=== PATIENT | male | born 1955 | race Hispanic/Latino ===

== ENCOUNTER 2017-04-18 12:59 | Emergency (ER) | payer BC ==
[2017-04-18 14:06] VITALS: BMI 28.7
[2017-04-18 15:01] LABS: URINE BILIRUBIN NEGATIVE (NEGATIVE); URINE BLOOD NEGATIVE (NEGATIVE); URINE GLUCOSE (UA) >=1000 mg/dL (NEGATIVE); URINE KETONE 15 mg/dL (NEGATIVE); URINE LEUKOCYTE ESTERASE NEGATIVE Leu/uL (NEGATIVE); URINE PROTEIN TRACE mg/dL (<30 mg/dL); URINE UROBILINOGEN 0.2 E.U./dL (<1 E.U./dL)
[2017-04-18 15:02] LABS: URINE APPEARANCE SL CLOUDY (CLEAR); URINE COLOR YELLOW (YELLOW)
[2017-04-18 15:07] LABS: URINE RBC NEGATIVE /hpf (0-2); URINE WBC NEGATIVE /hpf (0-6)
[2017-04-18] MEDS ORDERED: Insulin Reg-MEDIUM-Coverage SC STA (15:13)
[2017-04-18] MEDS ORDERED: Insulin Regular 1 UNITS/0.01 ML ML SC STA (15:15)
--- NOTE | 2017-04-18 16:00 | ED PDOC ---
Arrival/HPI - General Chief Complaint: Flu-like Symptoms Time Seen by Provider: 04/18/17 14:25 Historian: Patient - History of Present Illness Narrative History of Present Illness (Text): 04/18/17 15:48 61yo male with PMHx of Diabetes and neuropathy who present with complaint of lower back pain, left knee pain, generalized weakness for days. He states he stopped taking his oral hypoglycemics in September, because he couldn't tolerate the side effect. +increase thirst. Denies nausea, vomiting, abdominal pain, fever, dysuria, hematuria, chest pain, any other complaint. Past Medical History - Provider Review Nursing Documentation Reviewed: Yes - Infectious Disease Hx of Infectious Diseases: None - Cardiac Hx Cardiac Disorders: Yes - Pulmonary Hx Respiratory Disorders: No - Neurological Hx Neurological Disorder: No - HEENT Hx HEENT Disorder: No - Renal Hx Renal Disorder: No - Endocrine/Metabolic Hx Endocrine Disorders: Yes Hx Diabetes Mellitus Type 2: Yes - Hematological/Oncological Hx Blood Disorders: No - Integumentary Hx Dermatological Disorder: No - Musculoskeletal/Rheumatological Hx Musculoskeletal Disorders: No - Gastrointestinal Hx Gastrointestinal Disorders: No - Genitourinary/Gynecological Hx Genitourinary Disorders: No - Psychiatric Hx Psychophysiologic Disorder: No Hx Depression: No Hx Emotional Abuse: No Hx Physical Abuse: No Hx Substance Use: No - Past Surgical History Past Surgical History: No Previous - Surgical History Other/Comment: right knee - Anesthesia Hx Anesthesia: No Hx Anesthesia Reactions: No - Suicidal Assessment Feels Threatened In Home Enviroment: No Family/Social History - Physician Review Nursing Documentation Reviewed: Yes Family/Social History: Unknown Family HX Smoking Status: Never Smoked Hx Alcohol Use: No Hx Substance Use: No Allergies/Home Meds Allergies/Adverse Reactions: Allergies ramipril Allergy (Verified 04/18/17 14:13) RASH Review of Systems - Physician Review All systems were reviewed & negative as marked: Yes - Review of Systems Constitutional: Normal Eyes: Normal ENT: Normal Respiratory: Normal Cardiovascular: Normal Gastrointestinal: Normal Genitourinary Male: Normal Musculoskeletal: Arthralgias (Left knee), Back Pain Skin: Normal Neurological: Normal Endocrine: Normal Hemo/Lymphatic: Normal Psychiatric: Normal Physical Exam Vital Signs Reviewed: Yes Vital Signs Temp Pulse Resp BP Pulse Ox 04/18/17 16:13 98.7 F 98 H 18 110/65 99 04/18/17 14:06 99.8 F H 116 H 20 108/63 97 Temperature: Afebrile Blood Pressure: Normal Pulse: Tachycardic Respiratory Rate: Normal Appearance: Positive for: Well-Appearing, Non-Toxic, Comfortable Pain Distress: None Mental Status: Positive for: Alert and Oriented X 3 Finger Stick Blood Glucose: 316 - Systems Exam Head: Present: Atraumatic, Normocephalic Pupils: Present: PERRL Extroacular Muscles: Present: EOMI Conjunctiva: Present: Normal Mouth: Present: Moist Mucous Membranes Neck: Present: Normal Range of Motion Respiratory/Chest: Present: Clear to Auscultation, Good Air Exchange. No: Respiratory Distress, Accessory Muscle Use Cardiovascular: Present: Regular Rate and Rhythm, Normal S1, S2. No: Murmurs Abdomen: Present: Normal Bowel Sounds. No: Tenderness, Distention, Peritoneal Signs Back: Present: Normal Inspection Upper Extremity: Present: Normal Inspection. No: Cyanosis, Edema Lower Extremity: Present: Normal Inspection. No: Edema Neurological: Present: GCS=15, CN II-XII Intact, Speech Normal Skin: Present: Warm, Dry, Normal Color. No: Rashes Psychiatric: Present: Alert, Oriented x 3, Normal Insight, Normal Concentration Medical Decision Making ED Course and Treatment: 04/18/17 17:22 PT was comfortable and hemodynamically stable in ED. Prelimary US report was negative for DVT b/l. per the tech. Pt's pain or weakness is likely secondary to neuropathy with history of uncontrolled DM. Result was DW the pt. He was DC home with Metformin 1000mg. Advised to f/u with his PMD for further treatment. Advised to return to ED for any new symptoms - Lab Interpretations Lab Results: Lab Results 04/18/17 14:50: Urine Color Yellow, Urine Appearance Sl cloudy, Urine pH 6.0, Ur Specific Altha 1.015, Urine Protein Trace H, Urine Glucose (UA) >=1000, Urine Ketones 15 H, Urine Blood Negative, Urine Nitrate Negative, Urine Bilirubin Negative, Urine Urobilinogen 0.2, Ur Leukocyte Esterase Negative, Urine RBC Negative, Urine WBC Negative - RAD Interpretation Radiology Orders: 04/18/17 14:26 KNEE WITH PATELLA LEFT 3 VIEW [RAD] Stat DUPLEX LOWER EXTRM VEIN BILAT [US] Stat - Medication Orders Current Medication Orders: Discontinued Medications Insulin Human Regular (Humulin R) 7 units SC ONCE STA PRN Reason: Protocol Stop: 04/18/17 15:16 Last Admin: 04/18/17 16:15 Dose: 7 units MAR Blood Glucose Document 04/18/17 16:15 EQ (Rec: 04/18/17 16:16 EQ [facility] [id number][place] Blood Glucose Finger Stick Blood Glucose (70-120) 327 Subcutaneous Administrations Document 04/18/17 16:15 EQ (Rec: 04/18/17 16:16 EQ [facility] [id number]) Injection Site MAR Injection Site Left Deltoid Charges for Administration # of Subcutaneous Administrations 1 Disposition/Present on Arrival - Present on Arrival Any Indicators Present on Arrival: No History of DVT/PE: No History of Uncontrolled Diabetes: No Urinary Catheter: No History of Decub. Ulcer: No History Surgical Site Infection Following: None - Disposition Have Diagnosis and Disposition been Completed?: Yes Diagnosis: Neuropathy, Leg pain, Hyperglycemia Disposition: HOME/ ROUTINE Disposition Time: 17:15 Patient Plan: Discharge Patient Problems: Current Active Problems Problem Status Onset Hyperglycemia Acute Leg pain Acute Neuropathy Acute Condition: STABLE Discharge Instructions (ExitCare): Peripheral Neuropathy (ED), Diabetic Hyperglycemia (ED) Additional Instructions: Follow up with your Doctor Return to ED for any new symptoms Prescriptions: MetFORMIN [glucoPHAGE] 1,000 mg PO BID #30 tab Referrals: Bret Doan [Primary Care Provider] - Follow up with primary Forms: [employer] ([place])
[2017-04-18 16:13] VITALS: RESP 18; TEMP 98.7; O2SAT 99
--- NOTE | 2017-04-18 16:18 | RAD ---
PROCEDURE: Left Knee Radiographs. HISTORY: Pain. COMPARISON: None. FINDINGS: BONES: Normal. No fracture. JOINTS: Normal. No osteoarthritis. JOINT EFFUSION: None. OTHER FINDINGS: None. IMPRESSION: Normal radiographs of the left knee.
[2017-04-18 17:44] VITALS: BP 112/69; PULSE 86
--- NOTE | 2017-04-20 14:05 | US ---
HISTORY: Leg pain and swelling. Evaluate for DVT PHYSICIAN(S): Raudel Perez MD. TECHNIQUE: Duplex sonography and color-flow Doppler with graded compression were used to evaluate the deep venous systems of both lower extremities. FINDINGS: The visualized deep venous systems of both lower extremities are sonographically normal and compressible. Normal wave forms and augmentation are seen. There is no sonographic evidence for deep venous thrombosis in the visualized segments of both lower extremities. IMPRESSION: No sonographic evidence for deep venous thrombosis in the visualized segments of both lower extremities.
== END 2017-04-18 17:43 | disposition home or self-care (01) ==
LOC: ED 12:59
DX: E11.65 Type 2 diabetes mellitus with hyperglycemia (principal); E11.40 Type 2 diabetes mellitus with diabetic neuropathy, unspecified; Z79.84 Long term (current) use of oral hypoglycemic drugs

== ENCOUNTER 2017-04-20 16:38 | Inpatient (IN) | payer BC ==
[2017-04-20] MEDS ORDERED: Vancomycin 1gm in NS 250ml 1 GM/250 ML BAG IVPB STA (17:08)
[2017-04-20] MEDS ORDERED: Piperacillin/Tazobact 3.375 gm 100 ML IVPB STA (17:08)
[2017-04-20] MEDS ORDERED: TDAP Vaccine 0.5 mL Syr IM ONE (17:08)
[2017-04-20] MEDS ORDERED: Morphine 4 mg/ml ISec IVP STA (17:08)
[2017-04-20] MEDS ORDERED: Sodium Chloride 0.9% 1,000 ML IV SCH (17:15)
--- NOTE | 2017-04-20 17:15 | ED PDOC ---
Arrival/HPI - General Chief Complaint: Lower Extremity Problem/Injury Time Seen by Provider: 04/20/17 16:52 Historian: Patient - History of Present Illness Narrative History of Present Illness (Text): 04/20/17 17:12 61 year old male, pmh including chronic uncontrolled diabetes due to the financial situation but currently on the metformin po medication only with last hgba1c 11 back in 08/2016, allergic to ramipril, last tetanus over 10 years ago , complaining of rt. lower extremity pain x 1 week. pt. stated that he was seen here about 2 days ago with negative RLE study for venuous doppler with no DVT from 2 days ago, still having and he is here for the second evaluation. Pt. has no nausea or vomiting, no chest pain or shortness of breath, no night sweat, no dizziness, no rash, no weight loss, stated that he walks alot, no other medical or psychological complaints. Past Medical History - Provider Review Nursing Documentation Reviewed: Yes - Infectious Disease Hx of Infectious Diseases: None - Cardiac Hx Cardiac Disorders: No - Pulmonary Hx Respiratory Disorders: No - Neurological Hx Neurological Disorder: No - HEENT Hx HEENT Disorder: No - Renal Hx Renal Disorder: No - Endocrine/Metabolic Hx Endocrine Disorders: Yes Hx Diabetes Mellitus Type 2: Yes - Hematological/Oncological Hx Blood Disorders: No - Integumentary Hx Dermatological Disorder: No - Musculoskeletal/Rheumatological Hx Musculoskeletal Disorders: No - Gastrointestinal Hx Gastrointestinal Disorders: No - Genitourinary/Gynecological Hx Genitourinary Disorders: No - Psychiatric Hx Psychophysiologic Disorder: No Hx Depression: No Hx Emotional Abuse: No Hx Physical Abuse: No Hx Substance Use: No - Past Surgical History Past Surgical History: No Previous - Surgical History Other/Comment: right knee - Anesthesia Hx Anesthesia: No Hx Anesthesia Reactions: No - Suicidal Assessment Feels Threatened In Home Enviroment: No Family/Social History - Physician Review Nursing Documentation Reviewed: Yes Family/Social History: Unknown Family HX Smoking Status: Never Smoked Hx Alcohol Use: No Hx Substance Use: No Allergies/Home Meds Allergies/Adverse Reactions: Allergies ramipril Allergy (Verified 04/20/17 16:51) RASH Review of Systems - Review of Systems Constitutional: absent: Fatigue, Fevers Eyes: absent: Vision Changes ENT: absent: Hearing Changes Respiratory: absent: SOB, Cough Cardiovascular: absent: Chest Pain Gastrointestinal: absent: Abdominal Pain, Nausea, Vomiting Skin: Cellulitis. absent: Rash, Pruritis, Skin Lesions, Laceration, Abscess, Ulcer Neurological: absent: Headache, Dizziness Physical Exam Vital Signs Reviewed: Yes Vital Signs Temp Pulse Resp BP Pulse Ox 04/20/17 19:13 90 16 137/78 96 04/20/17 18:29 82 18 139/80 98 04/20/17 16:47 98.3 F 105 H 18 121/70 96 Temperature: Afebrile Blood Pressure: Normal Pulse: Tachycardic Respiratory Rate: Normal Appearance: Positive for: Well-Appearing, Non-Toxic Pain Distress: Severe Mental Status: Positive for: Alert and Oriented X 3 - Systems Exam Head: Present: Atraumatic, Normocephalic Pupils: Present: PERRL Extroacular Muscles: Present: EOMI Conjunctiva: Present: Normal Mouth: Present: Moist Mucous Membranes Neck: Present: Normal Range of Motion Respiratory/Chest: Present: Clear to Auscultation, Good Air Exchange. No: Respiratory Distress, Accessory Muscle Use Cardiovascular: Present: Regular Rate and Rhythm, Normal S1, S2. No: Murmurs Abdomen: Present: Normal Bowel Sounds. No: Tenderness, Distention, Peritoneal Signs, Rebound, Guarding Back: Present: Normal Inspection Upper Extremity: Present: Normal Inspection. No: Cyanosis, Edema Lower Extremity: Present: Normal Inspection, Other (Rt. lower extremity: ventral visible approx. 2cm ruptured white pale blister skin with exposure of the underlying dermis layer of the skin on the 1st digit toe with cellulitis, cellulitis streaking dorsally to the anterior fabian proximal 1/3, +DPPT pulses, FROM without limitation, sensation intact, motor 5/5, +DPPT pulses capillary refill< 2 seconds, neurovascular intact. ). No: Edema Neurological: Present: GCS=15, Speech Normal, Motor Func Grossly Intact, Gait Normal, Memory Normal Skin: Present: Warm, Dry, Normal Color. No: Rashes Psychiatric: Present: Alert, Oriented x 3, Normal Insight, Normal Concentration Medical Decision Making ED Course and Treatment: 04/20/17 17:18 -labs/blood cultures/vbg -cxr and rt. foot xray -IV vancomyin and zosyn/morphine 4mg 04/20/17 17:34 -wound culture obtained and swab from the pouches of the rupture blister. Irrigated with saline, clean with betadine, xerofoam and gauze dressing. 04/20/17 18:08 -Pt. has wbc>12, tachycardic, +cellulitis, lactic acid>2. Code sepsis activated. IVF 30ml/kg (pt. stated that he has no cardiopulmonary disease) ordered with IV rocephin and zosyn. 04/20/17 18:09 -EKG: SR @ 100 BPM with PVC, no ST elevation or depression, no T wave inversion. -Chest xray wet read with no active disease -Rt. foot xray wet read with no visible fracture/dislocation/osteolytic lesion. -Labs are non-significant except wbc 12.1, glucose 386 (10 units insulin IV ordered), no signs or labs show indication of DKA -Lactic acid 2.1 -Pt. will need to be admitted. 04/20/17 18:24 -Pt. decline fluid bolus, hemodynamaically stable, will bolus 1000cc and maintainance at 200cc/hr due to the hyperglycemia condition with sepsis. -Discussed with Dr. Kee and he agreed not to bolus 3000cc/hr 04/20/17 18:55 -I discussed with DR. Kerr about the case/labs including code sepsis, request put in routine consult for Dr. Palma and Dr. Eubanks, request admit to her service. -Discussed with Dr. Kee and he will put in the admission order. - Lab Interpretations Microbiology Results: Microbiology Results 04/20/17 17:30 Drainage Gram Stain - Final Lab Results: 04/20/17 17:40 04/20/17 17:40 Lab Results 04/20/17 17:40: Sodium 132, Chloride 95 L, Potassium 4.1, Carbon Dioxide 25, Anion Gap 16, BUN 18, Creatinine 1.1, Est GFR ( Amer) > 60, Est GFR (Non- Af Amer) > 60, Random Glucose 386 H*, Calcium 9.8, Total Bilirubin 1.1, AST 16 L , ALT 29, Alkaline Phosphatase 104, Total Protein 7.9, Albumin 4.3, Globulin 3.6 , Albumin/Globulin Ratio 1.2 04/20/17 17:40: WBC 12.1 H, RBC 4.74, Hgb 14.8, Hct 42.8, MCV 90.3, MCH 31.2, MCHC 34.6, RDW 11.8, Plt Count 220, MPV 10.9, Gran % 82.7 H, Lymph % (Auto) 8.4 L, [place] % (Auto) 8.4 H, Eos % (Auto) 0.3 L, Baso % (Auto) 0.2, Gran # 10.00 H, Lymph # 1.0 L, [place] # 1.0 H, Eos # 0.0, Baso # 0.02 04/20/17 17:15: pO2 31, VBG pH 7.38, VBG pCO2 45.0, VBG HCO3 26.6, VBG Total CO2 28.0, VBG O2 Sat (Calc) 68.1 H, VBG Base Excess 1.0, VBG Potassium 4.1, Sodium 133.0, Chloride 95.0 L, Glucose 409 H*, Lactate 2.1, FiO2 21.0, Venous Blood Potassium 4.1 Interpretation: Abnormal lab values (Lactic acid 2.1, glucose 386, wbc 12.1) - RAD Interpretation Radiology Orders: 04/20/17 17:08 FOOT RIGHT 3 VIEWS ROUTINE [RAD] Stat 04/20/17 17:10 CHEST ONE VIEW [RAD] Stat Rt. foot: no acute findings Chest xray: no active disease Cold Press Loader: Radiologist - EKG Interpretation EKG Interpretation (Text): 04/20/17 17:23 -EKG: SR @ 100 BPM with PVC, no ST elevation or depression, no T wave inversion. Interpreted by ED Physician: Yes Type: 12 lead EKG - Medication Orders Current Medication Orders: Enoxaparin Sodium (Lovenox) 30 mg SC DAILY [facility] PRN Reason: Protocol Last Admin: 04/21/17 09:49 Dose: 30 mg Subcutaneous Administrations Document 04/21/17 09:49 DSZ (Rec: 04/21/17 09:50 DSZ [facility] [id number][place] Injection Site MAR Injection Site Right Abdomen Charges for Administration # of Subcutaneous Administrations 1 Famotidine (Pepcid) 40 mg PO HS [facility] Last Admin: 04/20/17 21:26 Dose: 40 mg Hydromorphone HCl (Dilaudid) 0.25 mg IVP Q6H PRN PRN Reason: Pain, Mild (1-3) Last Admin: 04/21/17 00:39 Dose: 0.25 mg MAR Pain Assessment Document 04/21/17 00:39 MJ (Rec: 04/21/17 00:40 MJ [facility] [id number][place] Pain Reassessment Is this a pain reassessment? No Sleep Is patient sleeping during reassessment? No Presence of Pain Presence of Pain Yes Pain Scale Used Pain Scale Used Numeric Location Left, Right or Bilateral Right Pain Location Body Site Foot Great Toe Description Description Constant Intensity of Pain at present 8 Pain Behavior Moaning Alleviating Factors/Management Medication Techniques Alleviating Factors Medication IVP Administration Document 04/21/17 00:39 MJ (Rec: 04/21/17 00:40 MJ [facility] [id number]) Charges for Administration # of IVP Administrations 1 Re-Assess: FATMATA Pain Assessment Document 04/21/17 01:39 MJ (Rec: 04/21/17 07:59 MJ [id number]) Pain Reassessment Is this a pain reassessment? Yes Sleep Is patient sleeping during reassessment? Yes Vancomycin HCl (Vancomycin 1gm) 1 gm in 250 mls @ 167 mls/hr IVPB DAILY [facility] PRN Reason: Protocol Last Admin: 04/21/17 10:08 Dose: 167 mls/hr eMAR Start Stop Document 04/21/17 10:08 DSZ (Rec: 04/21/17 10:08 DSZ [facility] [id number]) Intravenous Solution Start Date 04/21/17 Start Time 10:08 Cefepime HCl (Maxipime 1gm) 1 gm in 100 mls @ 100 mls/hr IVPB Q12 [facility] PRN Reason: Protocol Sodium Chloride (Sodium Chloride 0.9%) 1,000 mls @ 100 mls/hr IV .Q10H [facility] Insulin Human Regular (Humulin R Low) 0 units SC ACHS [facility] PRN Reason: Protocol Last Admin: 04/21/17 12:02 Dose: 4 units MAR Blood Glucose Document 04/21/17 12:02 DSZ (Rec: 04/21/17 12:02 DSZ [id number]) Blood Glucose Finger Stick Blood Glucose (70-120) 339 Subcutaneous Administrations Document 04/21/17 12:02 DSZ (Rec: 04/21/17 12:[address] [id number]) Injection Site MAR Injection Site Right Arm Charges for Administration # of Subcutaneous Administrations 1 Metformin HCl (Glucophage) 1,000 mg PO BID [facility] Last Admin: 04/21/17 09:48 Dose: 1,000 mg Silver Sulfadiazine (Silvadene 1% 25 Gm) 0 gm TP DAILY [facility] Discontinued Medications Sodium Chloride (Sodium Chloride 0.9%) 1,000 mls @ 500 mls/hr IV .Q2H [facility] Last Admin: 04/20/17 17:40 Dose: 500 mls/hr eMAR Start Stop Document 04/20/17 17:40 FER (Rec: 04/20/17 17:42 FER [id number]) Intravenous Solution Start Date 04/20/17 Start Time 17:40 End Date 04/20/17 End time 19:40 Total Infusion Time 120 Vancomycin HCl (Vancomycin 1gm) 1 gm in 250 mls @ 167 mls/hr IVPB STAT ST[facility] PRN Reason: Protocol Stop: 04/20/17 18:37 Last Admin: 04/20/17 18:20 Dose: 167 mls/hr eMAR Start Stop Document 04/20/17 18:20 FER (Rec: 04/20/17 18:25 FER [id number]) Intravenous Solution Start Date 04/20/17 Start Time 18:20 End Date 04/20/17 End time 19:50 Total Infusion Time 90 Piperacillin Sod/Tazobactam Sod (Zosyn 3.375 In Ns 100ml) 100 mls @ 200 mls/hr IVPB STAT STA PRN Reason: Protocol Stop: 04/20/17 17:37 Last Admin: 04/20/17 17:40 Dose: 200 mls/hr eMAR Start Stop Document 04/20/17 17:40 FER (Rec: 04/20/17 17:41 FER [id number]) Intravenous Solution Start Date 04/20/17 Start Time 17:40 End Date 04/20/17 End time 18:10 Total Infusion Time 30 Sodium Chloride (Sodium Chloride 0.9%) 1,000 mls @ 999 mls/hr IV .Q1H1M STA Stop: 04/20/17 19:02 Last Admin: 04/20/17 18:14 Dose: 999 mls/hr eMAR Start Stop Document 04/20/17 18:14 FER (Rec: 04/20/17 18:15 FER [id number]) Intravenous Solution Start Date 04/20/17 Start Time 18:14 End Date 04/20/17 End time 19:14 Total Infusion Time 60 Sodium Chloride (Sodium Chloride 0.9%) 1,000 mls @ 999 mls/hr IV .Q1H1M STA Stop: 04/20/17 19:03 Last Admin: 04/20/17 18:15 Dose: 999 mls/hr eMAR Start Stop Document 04/20/17 18:15 FER (Rec: 04/20/17 18:15 FER [id number]) Intravenous Solution Start Date 04/20/17 Start Time 18:15 End Date 04/20/17 End time 19:15 Total Infusion Time 60 Sodium Chloride (Sodium Chloride 0.9%) 1,000 mls @ 999 mls/hr IV .Q1H1M STA Stop: 04/20/17 19:03 Last Admin: 04/20/17 19:09 Dose: Sodium Chloride (Sodium Chloride 0.9%) 1,000 mls @ 200 mls/hr IV .Q5H [facility] Last Admin: 04/21/17 09:48 Dose: 200 mls/hr eMAR Start Stop Document 04/21/17 09:48 DSZ (Rec: 04/21/17 09:48 DSZ [facility] [id number]) Intravenous Solution Start Date 04/21/17 Start Time 09:48 Piperacillin Sod/Tazobactam Sod (Zosyn 2.25 Gm In 0.9% 100 Ml) 2.25 gm in 100 mls @ 100 mls/hr IVPB Q6 [facility] PRN Reason: Protocol Stop: 04/21/17 06:59 Last Admin: 04/21/17 05:27 Dose: 100 mls/hr eMAR Start Stop Document 04/21/17 05:27 MJ (Rec: 04/21/17 05:27 MJ [facility] [id number]) Intravenous Solution Start Date 04/21/17 Start Time 05:27 Insulin Human Regular (Humulin R) 10 units IV STAT STA Stop: 04/20/17 18:11 Last Admin: 04/20/17 18:42 Dose: 10 units eMAR Start Stop Document 04/20/17 18:42 FER (Rec: 04/20/17 18:43 FER [id number]) Intravenous Solution Start Date 04/20/17 Start Time 18:43 End Date 04/20/17 End time 18:45 Total Infusion Time 2 [facility] Blood Glucose Document 04/20/17 18:42 FER (Rec: 04/20/17 18:43 FER [id number]) Blood Glucose Finger Stick Blood Glucose (70-120) 386 Morphine Sulfate (Morphine) 4 mg IVP STAT STA Stop: 04/20/17 17:09 Last Admin: 04/20/17 17:40 Dose: 4 mg [facility] Pain Assessment Document 04/20/17 17:40 FER (Rec: 04/20/17 17:40 FERKRESGE EYE [id number]) Pain Reassessment Is this a pain reassessment? Yes Presence of Pain Presence of Pain Yes Pain Scale Used Pain Scale Used Numeric Location Left, Right or Bilateral Right Pain Location Body Site Foot Description Description Constant Intensity of Pain at present 4 IVP Administration Document 04/20/17 17:40 FER (Rec: 04/20/17 17:40 FER [id number]) Charges for Administration # of IVP Administrations 1 Re-Assess: [facility]ANNER Pain Assessment Document 04/20/17 18:40 MJ (Rec: 04/21/17 00:37 MJ [id number]) Pain Reassessment Is this a pain reassessment? Yes Sleep Is patient sleeping during reassessment? No Presence of Pain Presence of Pain Yes Pain Scale Used Pain Scale Used Numeric Location Left, Right or Bilateral Right Pain Location Body Site Foot Great Toe Description Description Constant Intensity of Pain at present 4 Tetanus/Reduced Diphtheria/Acell Pertussis (Boostrix Vaccine Inj) 0.5 ml IM .ONCE ONE Stop: 04/20/17 17:09 Last Admin: 04/20/17 17:42 Dose: 0.5 ml Immunization Registry Document 04/20/17 17:42 FER (Rec: 04/20/17 17:43 FER [id number]) Immunization Registry Consent Date 04/18/17 - PA / [employer] / Resident Statement / has reviewed & agrees with the documentation as recorded. Disposition/Present on Arrival - Present on Arrival Any Indicators Present on Arrival: No History of DVT/PE: No History of Uncontrolled Diabetes: No Urinary Catheter: No History of Decub. Ulcer: No History Surgical Site Infection Following: None - Disposition Have Diagnosis and Disposition been Completed?: Yes Diagnosis: Sepsis, Uncontrolled diabetes mellitus, Infected blister of great toe of right foot, Cellulitis, Hyperglycemia due to type 2 diabetes mellitus Disposition: HOSPITALIZED Disposition Time: 18:13 Patient Plan: Admission Patient Problems: Current Active Problems Problem Status Onset Cellulitis Acute Infected blister of great toe of right foot Acute Sepsis Acute Uncontrolled diabetes mellitus Acute Condition: STABLE
[2017-04-20 17:49] LABS: VENOUS BLOOD PH 7.38 (7.32-7.43)
[2017-04-20 17:59] LABS: BASO # 0.02 K/mm3 (0.0-2.0); BASO % 0.2 % (0.0-3.0); EOS % 0.3 % (1.5-5.0); GRAN % 82.7 % (50.0-68.0); HEMATOCRIT 42.8 % (42.0-52.0); LYMPH % 8.4 % (22.0-35.0); MEAN CELL VOLUME 90.3 fl (80.0-105.0); MEAN CORPUSCULAR HEMOGLOBIN 31.2 pg (25.0-35.0); MEAN CORPUSCULAR HGB CONC 34.6 g/dl (31.0-37.0); MEAN PLATELET VOLUME 10.9 fl (7.0-11.0); MONO % 8.4 % (1.0-6.0); RED CELL DISTRIBUTION WIDTH 11.8 % (11.5-14.5); WHITE BLOOD COUNT 12.1 10^3/ul (4.5-11.0)
[2017-04-20 18:01] LABS: ALB/GLOB RATIO 1.2 (1.1-1.8); ALKALINE PHOSPHATASE 104 U/L (38-126); ALT/SGPT 29 U/L (7-56); AST/SGOT 16 U/L (17-59); BILIRUBIN,TOTAL 1.1 mg/dL (0.2-1.3); BLOOD UREA NITROGEN 18 mg/dL (7-21); CALCIUM 9.8 mg/dL (8.4-10.5); CARBON DIOXIDE 25 mmol/L (21-33); CHLORIDE 95 mmol/L (98-107); GFR AFRICAN-AMERICAN > 60; GLUCOSE,RANDOM 386 mg/dL (70-110); POTASSIUM 4.1 mmol/L (3.6-5.0); SODIUM 132 mmol/L (132-148); TOTAL PROTEIN 7.9 g/dL (5.8-8.3)
[2017-04-20] MEDS ORDERED: Sodium Chloride 0.9% 1,000 ML IV STA ×3 (18:02→18:03)
[2017-04-20] MEDS ORDERED: Insulin Regular 1 UNITS/0.01 ML ML IV STA (18:10)
[2017-04-20] MEDS: Sodium Chloride 0.9% 1,000 ML IV SCH (18:31)
[2017-04-20 20:57] LABS: VENOUS BLOOD PH 7.34 (7.32-7.43)
[2017-04-20 21:50] LABS: CHOLESTEROL 235 mg/dL (130-200)
[2017-04-20 21:57] VITALS: BMI 28.1
[2017-04-20] MEDS: Piperacillin/Tazobact 2.25gm 2.25 GM/100 ML BAG IVPB SCH (23:13)
[2017-04-21] MEDS: HYDROmorphone 0.5 mg/0.5 ml ISec IVP PRN ×2 (00:39→23:03)
[2017-04-21] MEDS: Piperacillin/Tazobact 2.25gm 2.25 GM/100 ML BAG IVPB SCH (05:27)
[2017-04-21 07:03] LABS: BLOOD UREA NITROGEN 11 mg/dL (7-21); CALCIUM 8.6 mg/dL (8.4-10.5); CARBON DIOXIDE 28 mmol/L (21-33); CHLORIDE 104 mmol/L (98-107); GFR AFRICAN-AMERICAN > 60; GLUCOSE,RANDOM 266 mg/dL (70-110); SODIUM 137 mmol/L (132-148)
[2017-04-21 07:19] LABS: MEAN CELL VOLUME 91.5 fl (80.0-105.0); MEAN CORPUSCULAR HEMOGLOBIN 31.2 pg (25.0-35.0); MEAN CORPUSCULAR HGB CONC 34.1 g/dl (31.0-37.0); MEAN PLATELET VOLUME 10.7 fl (7.0-11.0); WHITE BLOOD COUNT 7.7 10^3/ul (4.5-11.0)
[2017-04-21] MEDS: Insulin Reg-LOW-Coverage SC SCH ×5 (08:00→22:13)
[2017-04-21] MEDS: Sodium Chloride 0.9% 1,000 ML IV SCH ×5 (08:01→18:20)
--- NOTE | 2017-04-21 08:14 | RAD ---
PROCEDURE: CHEST RADIOGRAPH, 1 VIEW HISTORY: medical clearance COMPARISON: 12/11/2015 FINDINGS: LUNGS: Clear. PLEURA: No pneumothorax or pleural fluid seen. CARDIOVASCULAR: Normal. OSSEOUS STRUCTURES: No significant abnormalities. VISUALIZED UPPER ABDOMEN: Normal. OTHER FINDINGS: None. IMPRESSION: No active disease.
--- NOTE | 2017-04-21 08:15 | RAD ---
PROCEDURE: Right Foot Radiographs. HISTORY: rt. foot 1st great toe cellulitis COMPARISON: None. FINDINGS: BONES: Normal. No fracture. JOINTS: Normal. SOFT TISSUES: Normal. OTHER FINDINGS: None. IMPRESSION: No acute findings
[2017-04-21 08:25] LABS: URINE BILIRUBIN NEGATIVE (NEGATIVE); URINE BLOOD NEGATIVE (NEGATIVE); URINE GLUCOSE (UA) >=1000 mg/dL (NEGATIVE); URINE KETONE 15 mg/dL (NEGATIVE); URINE LEUKOCYTE ESTERASE NEGATIVE Leu/uL (NEGATIVE); URINE PROTEIN NEGATIVE mg/dL (<30 mg/dL); URINE UROBILINOGEN 0.2 E.U./dL (<1 E.U./dL)
[2017-04-21 08:27] LABS: URINE APPEARANCE CLEAR (CLEAR); URINE COLOR YELLOW (YELLOW)
[2017-04-21] MEDS: Enoxaparin 30 mg Syringe SC SCH (09:49)
[2017-04-21] MEDS ORDERED: Vancomycin 1gm in NS 250ml 1 GM/250 ML BAG IVPB SCH (10:00)
--- NOTE | 2017-04-21 10:02 | CARD ---
APPROVED REPORT EKG Measurement Heart [id number] <Conclusion> Sinus rhythm with one premature ventricular complex RSR' or QR pattern in V1 suggests right ventricular conduction delay No change
--- NOTE | 2017-04-21 10:29 | CP.PCM.CON ---
<Paloma Alvaradomarilin - Last Filed: 04/21/17 10:23> History of Present Illness - History of Present Illness History of Present Illness: 61 y/o male with PMHx of DM seen and evaluated at bedside this morning for draining wound on the right hallux. Patient states that he walks a lot and works on his feet all the time and he may have stepped on something which led to the wound. Patient states that he does not know how he acquired the wound on the big toe but states that he felt little fever and chills on the night of the gi. Patient denies of any pain to the right toe. Patient denies of any recent N/V/SOB/CP today. Patient denies of any other pedal complains at this time. PMHx: DM PSHx: Right knee surgery Allergies: Ramipril SHx: Denies of any smoking, EtOH or illicit drug usage Review of Systems - Constitutional Constitutional: As Per HPI Past Patient History - Infectious Disease Hx of Infectious Diseases: None - Past Social History Smoking Status: Never Smoked - CARDIAC Hx Cardiac Disorders: No - PULMONARY Hx Respiratory Disorders: No - NEUROLOGICAL Hx Neurological Disorder: No - HEENT Hx HEENT Problems: No - RENAL Hx Chronic Kidney Disease: No - ENDOCRINE/METABOLIC Hx Endocrine Disorders: Yes Hx Diabetes Mellitus Type 2: Yes - HEMATOLOGICAL/ONCOLOGICAL Hx Blood Disorders: No - INTEGUMENTARY Hx Dermatological Problems: No - MUSCULOSKELETAL/RHEUMATOLOGICAL Hx Falls: No - GASTROINTESTINAL Hx Gastrointestinal Disorders: No - GENITOURINARY/GYNECOLOGICAL Hx Genitourinary Disorders: No - PSYCHIATRIC Hx Psychophysiologic Disorder: No Hx Depression: No Hx Emotional Abuse: No Hx Physical Abuse: No - SURGICAL HISTORY Other/Comment: right knee - ANESTHESIA Hx Anesthesia: No Hx Anesthesia Reactions: No Meds Allergies/Adverse Reactions: Allergies Allergy/AdvReac Type Severity Reaction Status Date / Time ramipril Allergy RASH Verified 04/20/17 16:51 - Medications Medications: Current Medications Enoxaparin Sodium (Lovenox) 30 mg SC DAILY [facility] PRN Reason: Protocol Last Admin: 04/21/17 09:49 Dose: 30 mg Famotidine (Pepcid) 40 mg PO HS [facility] Last Admin: 04/20/17 21:26 Dose: 40 mg Hydromorphone HCl (Dilaudid) 0.25 mg IVP Q6H PRN PRN Reason: Pain, Mild (1-3) Last Admin: 04/21/17 00:39 Dose: 0.25 mg Sodium Chloride (Sodium Chloride 0.9%) 1,000 mls @ 200 mls/hr IV .Q5H [facility] Last Admin: 04/21/17 09:48 Dose: 200 mls/hr Vancomycin HCl (Vancomycin 1gm) 1 gm in 250 mls @ 167 mls/hr IVPB DAILY [facility] PRN Reason: Protocol Last Admin: 04/21/17 10:08 Dose: 167 mls/hr Insulin Human Regular (Humulin R Low) 0 units SC ACHS [facility] PRN Reason: Protocol Last Admin: 04/21/17 08:36 Dose: 12 units Metformin HCl (Glucophage) 1,000 mg PO BID [facility] Last Admin: 04/21/17 09:48 Dose: 1,000 mg Silver Sulfadiazine (Silvadene 1% 25 Gm) 0 gm TP DAILY [facility] Physical Exam - Constitutional Appears: Well, Non-toxic, No Acute Distress - Extremities Exam Extremities exam: Negative for: calf tenderness Additional comments: Bilateral LE exam VASC: DP/PT pulses are palpable 2/4 bilaterally, Cap refill time: < 3 sec to all digits, Temp gradient: warm to cool from proximal to distal bilaterally, mild non-pitting edema noted on the right hallux DERM: Wound measuring 2.5 cm x 2.1 cm x 0.1 cm at the level of plantar 1st MTPJ , Wound bed is 75% grannular and 25% fibrotic with hyperpigmented island at the distal lateral aspect of the wound, mild purulent with serous drainage noted from the wound bed, no probe to bone, tunneling up to approx. 0.2 cm noted on the plantar medial aspect, no probe to bone, surrounding erythema, no suspicion of active infection NEURO: Protective sensation grossly diminished ORTHO: no pain or tenderness on palpation of the ulcerated site on the right foot, Active ROM intact at the ankle joint, and forefoot with no complains - Neurological Exam Neurological exam: Alert, Oriented x3 - Psychiatric Exam Psychiatric exam: Normal Affect, Normal Mood Results - Vital Signs Recent Vital Signs: Last Vital Signs Temp 98.2 F 04/21/17 07:30 Pulse 81 04/21/17 07:30 Resp 18 04/21/17 07:30 BP 105/58 L 04/21/17 07:30 Pulse Ox 96 04/21/17 07:30 - Labs Result Diagrams: 04/21/17 06:15 04/21/17 06:15 Labs: Laboratory Results - last 24 hr 04/20/17 04/20/17 04/20/17 20:45 20:45 21:17 WBC RBC Hgb Hct MCV MCH MCHC RDW Plt Count MPV pO2 40 VBG pH 7.34 VBG pCO2 49.0 VBG HCO3 26.4 VBG Total CO2 27.9 VBG O2 Sat (Calc) 78.6 H VBG Base Excess 0.0 VBG Potassium 3.5 L Sodium 136.0 Chloride 102.0 Glucose 230 H Lactate 1.1 FiO2 21.0 Potassium Carbon Dioxide Anion Gap BUN Creatinine Est GFR ( Amer) Est GFR (Non-Af Amer) POC Glucose (mg/dL) 233 H Random Glucose Calcium Triglycerides 234 H Cholesterol 235 H LDL Cholesterol Direct 158 H HDL Cholesterol 34 TSH 3rd Generation Venous Blood Potassium 3.5 L Urine Color Urine Appearance Urine pH Ur Specific [place] Urine Protein Urine Glucose (UA) Urine Ketones Urine Blood Urine Nitrate Urine Bilirubin Urine Urobilinogen Ur Leukocyte Esterase 04/21/17 04/21/17 04/21/17 06:15 06:15 06:15 WBC 7.7 D RBC 4.26 Hgb 13.3 L Hct 39.0 L MCV 91.5 MCH 31.2 MCHC 34.1 RDW 12.0 Plt Count 204 MPV 10.7 pO2 VBG pH VBG pCO2 VBG HCO3 VBG Total CO2 VBG O2 Sat (Calc) VBG Base Excess VBG Potassium Sodium 137 Chloride 104 Glucose Lactate FiO2 Potassium 4.0 Carbon Dioxide 28 Anion Gap 9 L BUN 11 Creatinine 0.8 Est GFR ( Amer) > 60 Est GFR (Non-Af Amer) > 60 POC Glucose (mg/dL) Random Glucose 266 H Calcium 8.6 Triglycerides Cholesterol LDL Cholesterol Direct HDL Cholesterol TSH 3rd Generation 1.58 Venous Blood Potassium Urine Color Urine Appearance Urine pH Ur Specific [place] Urine Protein Urine Glucose (UA) Urine Ketones Urine Blood Urine Nitrate Urine Bilirubin Urine Urobilinogen Ur Leukocyte Esterase 04/21/17 04/21/17 07:38 08:00 WBC RBC Hgb Hct MCV MCH MCHC RDW Plt Count MPV pO2 VBG pH VBG pCO2 VBG HCO3 VBG Total CO2 VBG O2 Sat (Calc) VBG Base Excess VBG Potassium Sodium Chloride Glucose Lactate FiO2 Potassium Carbon Dioxide Anion Gap BUN Creatinine Est GFR ( Amer) Est GFR (Non-Af Amer) POC Glucose (mg/dL) 268 H Random Glucose Calcium Triglycerides Cholesterol LDL Cholesterol Direct HDL Cholesterol TSH 3rd Generation Venous Blood Potassium Urine Color Yellow Urine Appearance Clear Urine pH 6.0 Ur Specific [place] 1.020 Urine Protein Negative Urine Glucose (UA) >=1000 Urine Ketones 15 H Urine Blood Negative Urine Nitrate Negative Urine Bilirubin Negative Urine Urobilinogen 0.2 Ur Leukocyte Esterase Negative Assessment & Plan - Assessment and Plan (Free Text) Assessment: 61 y/o male with PMHx of DM evaluated at bedside for wound on the right hallux secondary to diabetic neuropathy Plan: Patient seen and evaluated at bedside with attending Dr. Eubanks Labs, vitals and charts reviewed - afebrile, WBC @ 7.7 today Wound cleaned with saline and dressing applied using optifoam pad Silvadine ordered Wound cultures taken - pending ESR levels ordered Forefoot wedge shoe ordered - educated to walk in the shoe and prevent from putting any pressure on the wound X-rays of the right foot reviewed: - no soft tissue emphysema or darshan cortical erosions noted indicating gas or active OM MRI of the right foot ordered - pending IV abx as per ID - Vancomycin Thank you for the podiatry consult - will continue to follow patient while in- house - Date & Time Date: 04/21/17 Time: 11:00 <Ariella Eubanks - Last Filed: 04/21/17 11:10> Meds - Medications Medications: Current Medications Enoxaparin Sodium (Lovenox) 30 mg SC DAILY [facility] PRN Reason: Protocol Last Admin: 04/21/17 09:49 Dose: 30 mg Famotidine (Pepcid) 40 mg PO HS [facility]VIN Last Admin: 04/20/17 21:26 Dose: 40 mg Hydromorphone HCl (Dilaudid) 0.25 mg IVP Q6H PRN PRN Reason: Pain, Mild (1-3) Last Admin: 04/21/17 00:39 Dose: 0.25 mg Sodium Chloride (Sodium Chloride 0.9%) 1,000 mls @ 200 mls/hr IV .Q5H [facility] Last Admin: 04/21/17 09:48 Dose: 200 mls/hr Vancomycin HCl (Vancomycin 1gm) 1 gm in 250 mls @ 167 mls/hr IVPB DAILY [facility] PRN Reason: Protocol Last Admin: 04/21/17 10:08 Dose: 167 mls/hr Insulin Human Regular (Humulin R Low) 0 units SC ACHS [facility] PRN Reason: Protocol Last Admin: 04/21/17 08:36 Dose: 12 units Metformin HCl (Glucophage) 1,000 mg PO BID [facility] Last Admin: 04/21/17 09:48 Dose: 1,000 mg Silver Sulfadiazine (Silvadene 1% 25 Gm) 0 gm TP DAILY [facility] Results - Vital Signs Recent Vital Signs: Last Vital Signs Temp 98.2 F 04/21/17 07:30 Pulse 81 04/21/17 07:30 Resp 18 04/21/17 07:30 BP 105/58 L 04/21/17 07:30 Pulse Ox 96 04/21/17 07:30 - Labs Result Diagrams: 04/21/17 06:15 04/21/17 06:15 Labs: Laboratory Results - last 24 hr 04/20/17 04/20/17 04/20/17 20:45 20:45 21:17 WBC RBC Hgb Hct MCV MCH MCHC RDW Plt Count MPV pO2 40 VBG pH 7.34 VBG pCO2 49.0 VBG HCO3 26.4 VBG Total CO2 27.9 VBG O2 Sat (Calc) 78.6 H VBG Base Excess 0.0 VBG Potassium 3.5 L Sodium 136.0 Chloride 102.0 Glucose 230 H Lactate 1.1 FiO2 21.0 Potassium Carbon Dioxide Anion Gap BUN Creatinine Est GFR ( Amer) Est GFR (Non-Af Amer) POC Glucose (mg/dL) 233 H Random Glucose Calcium Triglycerides 234 H Cholesterol 235 H LDL Cholesterol Direct 158 H HDL Cholesterol 34 TSH 3rd Generation Venous Blood Potassium 3.5 L Urine Color Urine Appearance Urine pH Ur Specific [place] Urine Protein Urine Glucose (UA) Urine Ketones Urine Blood Urine Nitrate Urine Bilirubin Urine Urobilinogen Ur Leukocyte Esterase 04/21/17 04/21/17 04/21/17 06:15 06:15 06:15 WBC 7.7 D RBC 4.26 Hgb 13.3 L Hct 39.0 L MCV 91.5 MCH 31.2 MCHC 34.1 RDW 12.0 Plt Count 204 MPV 10.7 pO2 VBG pH VBG pCO2 VBG HCO3 VBG Total CO2 VBG O2 Sat (Calc) VBG Base Excess VBG Potassium Sodium 137 Chloride 104 Glucose Lactate FiO2 Potassium 4.0 Carbon Dioxide 28 Anion Gap 9 L BUN 11 Creatinine 0.8 Est GFR ( Amer) > 60 Est GFR (Non-Af Amer) > 60 POC Glucose (mg/dL) Random Glucose 266 H Calcium 8.6 Triglycerides Cholesterol LDL Cholesterol Direct HDL Cholesterol TSH 3rd Generation 1.58 Venous Blood Potassium Urine Color Urine Appearance Urine pH Ur Specific [place] Urine Protein Urine Glucose (UA) Urine Ketones Urine Blood Urine Nitrate Urine Bilirubin Urine Urobilinogen Ur Leukocyte Esterase 04/21/17 04/21/17 07:38 08:00 WBC RBC Hgb Hct MCV MCH MCHC RDW Plt Count MPV pO2 VBG pH VBG pCO2 VBG HCO3 VBG Total CO2 VBG O2 Sat (Calc) VBG Base Excess VBG Potassium Sodium Chloride Glucose Lactate FiO2 Potassium Carbon Dioxide Anion Gap BUN Creatinine Est GFR ( Amer) Est GFR (Non-Af Amer) POC Glucose (mg/dL) 268 H Random Glucose Calcium Triglycerides Cholesterol LDL Cholesterol Direct HDL Cholesterol TSH 3rd Generation Venous Blood Potassium Urine Color Yellow Urine Appearance Clear Urine pH 6.0 Ur Specific [place] 1.020 Urine Protein Negative Urine Glucose (UA) >=1000 Urine Ketones 15 H Urine Blood Negative Urine Nitrate Negative Urine Bilirubin Negative Urine Urobilinogen 0.2 Ur Leukocyte Esterase Negative Attending/Attestation - Attestation I have personally seen and examined this patient.: Yes I have fully participated in the care of the patient.: Yes I have reviewed all pertinent clinical information: Yes Notes (Text): 04/21/17 11:04 Diabetes discussed with patient - he is agreeable to having the machinist general speak with him
--- NOTE | 2017-04-21 18:28 | CP.PCM.CON ---
History of Present Illness - History of Present Illness History of Present Illness: Infectious Disease Consultation: April 21, 2017 61 yo male with history of DM presenting with draining wound on the right hallux. He does not know when the wound occurred. The patient felt fevers and chills on the night of . PMHx: DM PSHx: Right knee surgery Allergies: Ramipril Social Hx: No tobacco, EtOH, or illicit drug use Active Medications Enoxaparin Sodium (Lovenox) 30 mg SC DAILY [facility] PRN Reason: Protocol Last Admin: 04/21/17 09:49 Dose: 30 mg Famotidine (Pepcid) 40 mg PO HS [facility]IN Last Admin: 04/20/17 21:26 Dose: 40 mg Hydromorphone HCl (Dilaudid) 0.25 mg IVP Q6H PRN PRN Reason: Pain, Mild (1-3) Last Admin: 04/21/17 00:39 Dose: 0.25 mg Vancomycin HCl (Vancomycin 1gm) 1 gm in 250 mls @ 167 mls/hr IVPB DAILY [facility] PRN Reason: Protocol Last Admin: 04/21/17 10:08 Dose: 167 mls/hr Cefepime HCl (Maxipime 1gm) 1 gm in 100 mls @ 100 mls/hr IVPB Q12 [facility] PRN Reason: Protocol Sodium Chloride (Sodium Chloride 0.9%) 1,000 mls @ 100 mls/hr IV .Q10H [facility] Last Admin: 04/21/17 15:30 Dose: 100 mls/hr Insulin Human Regular (Humulin R Low) 0 units SC ACHS [facility]IN PRN Reason: Protocol Last Admin: 04/21/17 16:55 Dose: 1 units Metformin HCl (Glucophage) 1,000 mg PO BID [facility] Last Admin: 04/21/17 17:00 Dose: 1,000 mg Silver Sulfadiazine (Silvadene 1% 25 Gm) 0 gm TP DAILY [facility] Family Hx: none given ROS: Fevers, chills No chest pain, melena, hematuria, hematemesis, hematochezia, depression, anxiety , diarrhea, headaches, dizziness. Past Patient History - Infectious Disease Hx of Infectious Diseases: None - Past Social History Smoking Status: Never Smoked - CARDIAC Hx Cardiac Disorders: No - PULMONARY Hx Respiratory Disorders: No - NEUROLOGICAL Hx Neurological Disorder: No - HEENT Hx HEENT Problems: No - RENAL Hx Chronic Kidney Disease: No - ENDOCRINE/METABOLIC Hx Endocrine Disorders: Yes Hx Diabetes Mellitus Type 2: Yes - HEMATOLOGICAL/ONCOLOGICAL Hx Blood Disorders: No - INTEGUMENTARY Hx Dermatological Problems: No - MUSCULOSKELETAL/RHEUMATOLOGICAL Hx Musculoskeletal Disorders: No - GASTROINTESTINAL Hx Gastrointestinal Disorders: No - GENITOURINARY/GYNECOLOGICAL Hx Genitourinary Disorders: No - PSYCHIATRIC Hx Psychophysiologic Disorder: No Hx Depression: No Hx Emotional Abuse: No Hx Physical Abuse: No Hx Substance Use: No - SURGICAL HISTORY Other/Comment: right knee - ANESTHESIA Hx Anesthesia: No Hx Anesthesia Reactions: No Meds Allergies/Adverse Reactions: Allergies Allergy/AdvReac Type Severity Reaction Status Date / Time ramipril Allergy RASH Verified 04/20/17 16:51 - Medications Medications: Current Medications Enoxaparin Sodium (Lovenox) 30 mg SC DAILY [facility] PRN Reason: Protocol Last Admin: 04/21/17 09:49 Dose: 30 mg Famotidine (Pepcid) 40 mg PO HS [facility] Last Admin: 04/20/17 21:26 Dose: 40 mg Hydromorphone HCl (Dilaudid) 0.25 mg IVP Q6H PRN PRN Reason: Pain, Mild (1-3) Last Admin: 04/21/17 00:39 Dose: 0.25 mg Vancomycin HCl (Vancomycin 1gm) 1 gm in 250 mls @ 167 mls/hr IVPB DAILY [facility] PRN Reason: Protocol Last Admin: 04/21/17 10:08 Dose: 167 mls/hr Cefepime HCl (Maxipime 1gm) 1 gm in 100 mls @ 100 mls/hr IVPB Q12 [facility] PRN Reason: Protocol Sodium Chloride (Sodium Chloride 0.9%) 1,000 mls @ 100 mls/hr IV .Q10H [facility] Last Admin: 04/21/17 15:30 Dose: 100 mls/hr Insulin Human Regular (Humulin R Low) 0 units SC ACHS [facility] PRN Reason: Protocol Last Admin: 04/21/17 16:55 Dose: 1 units Metformin HCl (Glucophage) 1,000 mg PO BID [facility] Last Admin: 04/21/17 17:00 Dose: 1,000 mg Silver Sulfadiazine (Silvadene 1% 25 Gm) 0 gm TP DAILY [facility] Physical Exam - Constitutional Appears: Non-toxic, No Acute Distress, Chronically Ill - Head Exam Head Exam: ATRAUMATIC, NORMOCEPHALIC - Eye Exam Eye Exam: EOMI, PERRL Pupil Exam: NORMAL ACCOMODATION, PERRL - ENT Exam ENT Exam: Mucous Membranes Moist, Normal External Ear Exam, TM's Normal Bilaterally - Neck Exam Neck exam: Positive for: Full Rom, Normal Inspection - Respiratory Exam Respiratory Exam: Clear to Auscultation Bilateral, NORMAL BREATHING PATTERN. absent: Rales, Rhonchi, Wheezes - Cardiovascular Exam Cardiovascular Exam: REGULAR RHYTHM, RRR, +S1, +S2 - GI/Abdominal Exam GI & Abdominal Exam: Normal Bowel Sounds, Soft. absent: Distended, Tenderness - Extremities Exam Additional comments: 2.5 x 2.1 x 0.1 cm wound. mildly purulent with serous drainage. - Neurological Exam Neurological exam: Alert, CN II-XII Intact, Oriented x3 - Psychiatric Exam Psychiatric exam: Normal Affect, Normal Mood - Skin Skin Exam: Intact, Normal Color Results - Vital Signs Recent Vital Signs: Last Vital Signs Temp 98 F 04/21/17 16:18 Pulse 84 04/21/17 16:18 Resp 16 04/21/17 16:18 BP 127/76 04/21/17 16:18 Pulse Ox 100 04/21/17 16:18 - Labs Result Diagrams: 04/21/17 06:15 04/21/17 06:15 Labs: Laboratory Results - last 24 hr 04/20/17 04/20/17 04/20/17 20:45 20:45 20:45 WBC RBC Hgb Hct MCV MCH MCHC RDW Plt Count MPV ESR pO2 40 VBG pH 7.34 VBG pCO2 49.0 VBG HCO3 26.4 VBG Total CO2 27.9 VBG O2 Sat (Calc) 78.6 H VBG Base Excess 0.0 VBG Potassium 3.5 L Sodium 136.0 Chloride 102.0 Glucose 230 H Lactate 1.1 FiO2 21.0 Potassium Carbon Dioxide Anion Gap BUN Creatinine Est GFR ( Amer) Est GFR (Non-Af Amer) POC Glucose (mg/dL) Random Glucose Hemoglobin A1c 12.4 H Calcium Triglycerides 234 H Cholesterol 235 H LDL Cholesterol Direct 158 H HDL Cholesterol 34 TSH 3rd Generation Venous Blood Potassium 3.5 L Urine Color Urine Appearance Urine pH Ur Specific [place] Urine Protein Urine Glucose (UA) Urine Ketones Urine Blood Urine Nitrate Urine Bilirubin Urine Urobilinogen Ur Leukocyte Esterase 04/20/17 04/21/17 04/21/17 21:17 06:15 06:15 WBC 7.7 D RBC 4.26 Hgb 13.3 L Hct 39.0 L MCV 91.5 MCH 31.2 MCHC 34.1 RDW 12.0 Plt Count 204 MPV 10.7 ESR pO2 VBG pH VBG pCO2 VBG HCO3 VBG Total CO2 VBG O2 Sat (Calc) VBG Base Excess VBG Potassium Sodium 137 Chloride 104 Glucose Lactate FiO2 Potassium 4.0 Carbon Dioxide 28 Anion Gap 9 L BUN 11 Creatinine 0.8 Est GFR ( Amer) > 60 Est GFR (Non-Af Amer) > 60 POC Glucose (mg/dL) 233 H Random Glucose 266 H Hemoglobin A1c Calcium 8.6 Triglycerides Cholesterol LDL Cholesterol Direct HDL Cholesterol TSH 3rd Generation Venous Blood Potassium Urine Color Urine Appearance Urine pH Ur Specific [place] Urine Protein Urine Glucose (UA) Urine Ketones Urine Blood Urine Nitrate Urine Bilirubin Urine Urobilinogen Ur Leukocyte Esterase 04/21/17 04/21/17 04/21/17 06:15 07:38 08:00 WBC RBC Hgb Hct MCV MCH MCHC RDW Plt Count MPV ESR pO2 VBG pH VBG pCO2 VBG HCO3 VBG Total CO2 VBG O2 Sat (Calc) VBG Base Excess VBG Potassium Sodium Chloride Glucose Lactate FiO2 Potassium Carbon Dioxide Anion Gap BUN Creatinine Est GFR ( Amer) Est GFR (Non-Af Amer) POC Glucose (mg/dL) 268 H Random Glucose Hemoglobin A1c Calcium Triglycerides Cholesterol LDL Cholesterol Direct HDL Cholesterol TSH 3rd Generation 1.58 Venous Blood Potassium Urine Color Yellow Urine Appearance Clear Urine pH 6.0 Ur Specific [place] 1.020 Urine Protein Negative Urine Glucose (UA) >=1000 Urine Ketones 15 H Urine Blood Negative Urine Nitrate Negative Urine Bilirubin Negative Urine Urobilinogen 0.2 Ur Leukocyte Esterase Negative 04/21/17 04/21/17 10:30 11:39 WBC RBC Hgb Hct MCV MCH MCHC RDW Plt Count MPV ESR 59 H pO2 VBG pH VBG pCO2 VBG HCO3 VBG Total CO2 VBG O2 Sat (Calc) VBG Base Excess VBG Potassium Sodium Chloride Glucose Lactate FiO2 Potassium Carbon Dioxide Anion Gap BUN Creatinine Est GFR ( Amer) Est GFR (Non-Af Amer) POC Glucose (mg/dL) 339 H Random Glucose Hemoglobin A1c Calcium Triglycerides Cholesterol LDL Cholesterol Direct HDL Cholesterol TSH 3rd Generation Venous Blood Potassium Urine Color Urine Appearance Urine pH Ur Specific [place] Urine Protein Urine Glucose (UA) Urine Ketones Urine Blood Urine Nitrate Urine Bilirubin Urine Urobilinogen Ur Leukocyte Esterase Assessment & Plan - Assessment and Plan (Free Text) Assessment: 61 yo male with DM presenting with right hallux wound. Currently on IV Vancomycin and Cefepime for coverage. Podiatry evaluation showing a stage II ulcer with no probing to bone. MRI of the foot pending. ESR of 59. Hgb A1c of 12.4. Local wound care as per podiatry. No leukocytosis. Supportive care. Thank you for allowing me to participate in the care of the patient, we will follow with you.
[2017-04-21] MEDS: Cefepime 1gm in NS 100ml 1 GM/100 ML BAG IVPB SCH (22:13)
[2017-04-21] MEDS: Vancomycin 1gm in NS 250ml 1 GM/250 ML BAG IVPB SCH (22:15)
--- NOTE | 2017-04-22 03:21 | HP ---
CHIEF COMPLAINT: Lower extremity problem, right foot big toe pain. HISTORY OF PRESENT ILLNESS: Mr. Alexandro Umana is a 51-year-old male with history of chronic uncontrolled diabetes mellitus type 2. According to him due to financial situation, he was not taking medicines properly, currently on metformin. His last hemoglobin was 11 in 08/2016, allergic to ramipril, came with complaining of right lower extremity pain from one week. The patient stated that he was seen here about 2 days ago with negative right lower extremity study of venous Doppler with known DVT from 2 days ago, still having pain. The patient has no nausea, vomiting. No chest pain. No shortness of breath. No fever, no chills. No night sweats. No dizziness. According to the patient, he walks a lot. No other medical or psychological problems. PAST MEDICAL HISTORY: Uncontrolled diabetes mellitus type 2, noncompliant. FAMILY HISTORY: Father and mother, noncontributory. SOCIAL HISTORY: Never smoking. No drugs. No ethanol. ALLERGIES: THE PATIENT IS ALLERGIC WITH RAMIPRIL. REVIEW OF SYSTEMS: The patient seen and examined on the bedside and looking comfortable. No fatigue. No fever. No vision changes. No hearing changes. No shortness of breath. No chest pain. No abdominal pain, nausea, or vomiting. No rash or pruritus, skin lesions or laceration. No headache. No dizziness, but has ulcers on the right foot big toe. PHYSICAL EXAMINATION VITAL SIGNS: Temperature 98.3, pulse 105, respiratory 18, blood pressure 121/70, pulse oximetry 96. HEENT: Head; normocephalic and atraumatic. Eyes; PERRLA. Extraocular muscles intact. Conjunctivae clear. Nose patent. Mucous membranes moist. NECK: Supple. No carotid bruits, JVD, or thyromegaly. HEART: S1 and S2 positive. CHEST: Bilateral symmetrical. Lungs are clear to auscultation. ABDOMEN: Soft. Bowel sounds positive. No organomegaly. EXTREMITIES: Upper extremity, no edema, no cyanosis. Lower extremities, right foot big toe has a dressing that is red inform. LABORATORY DATA: White blood cell is 12.1, hemoglobin 14.8, hematocrit 42.8, platelets 220. Sodium 132, potassium 4.1, BUN 18, creatinine 1.1, glucose 386. ASSESSMENT AND PLAN: Mr. Alexandro Umana is a 51-year-old male with leukocytosis, uncontrolled diabetes mellitus type 2, non-insulin requiring, noncompliant, urge to be compliant. Consult call with Emily, [employer], hypochloremia, nonhealing foot ulcer, diabetic ulcer, Podiatry consult called, ID consulted called, morphine given for pain, antibiotics started, sepsis, infected blister of the great toe of the right foot, cellulitis. ID consult called with Dr. Xiang Palma. The patient is seen by Dr. Eubanks, resident also; history of right knee surgery. Getting currently IV vancomycin and cefepime for coverage, has stage 2 ulcer with no probing to the bone. MRI of the foot pending done, ESR is 59. Hemoglobin was 12.4. Need local wound care. No leucocytosis, supportive care, failed outpatient treatment and will followup. Evelin Kerr MD MTDDenise
[2017-04-22 06:56] LABS: HEMATOCRIT 38.4 % (42.0-52.0); MEAN CELL VOLUME 91.2 fl (80.0-105.0); MEAN CORPUSCULAR HEMOGLOBIN 30.4 pg (25.0-35.0); MEAN CORPUSCULAR HGB CONC 33.3 g/dl (31.0-37.0); MEAN PLATELET VOLUME 10.4 fl (7.0-11.0); RED CELL DISTRIBUTION WIDTH 11.8 % (11.5-14.5); WHITE BLOOD COUNT 8.6 10^3/ul (4.5-11.0)
[2017-04-22 07:14] LABS: BLOOD UREA NITROGEN 9 mg/dL (7-21); CALCIUM 8.5 mg/dL (8.4-10.5); CARBON DIOXIDE 27 mmol/L (21-33); CHLORIDE 102 mmol/L (98-107); GFR AFRICAN-AMERICAN > 60; GLUCOSE,RANDOM 237 mg/dL (70-110); SODIUM 137 mmol/L (132-148)
[2017-04-22] MEDS: Insulin Reg-LOW-Coverage SC SCH ×4 (08:39→23:00)
[2017-04-22] MEDS: Sodium Chloride 0.9% 1,000 ML IV SCH (08:39)
[2017-04-22] MEDS: Vancomycin 1gm in NS 250ml 1 GM/250 ML BAG IVPB SCH ×2 (09:09→21:28)
[2017-04-22] MEDS: Enoxaparin 30 mg Syringe SC SCH (09:36)
[2017-04-22] MEDS: Cefepime 1gm in NS 100ml 1 GM/100 ML BAG IVPB SCH ×2 (11:53→21:28)
--- NOTE | 2017-04-22 12:12 | CP.PCM.PN ---
Subjective - Date & Time of Evaluation Date of Evaluation: 04/22/17 Time of Evaluation: 11:15 - Subjective Subjective: Infectious Disease Consultation: April 21, 2017 61 yo male with history of DM presenting with draining wound on the right hallux. He does not know when the wound occurred. The patient felt fevers and chills on the night of . No complaints currently. Spoke with Dr. Eubanks regarding patient. Objective - Vital Signs/Intake and Output Vital Signs (last 24 hours): Temp Pulse Resp BP Pulse Ox 97.9 F 53 L 18 121/77 96 04/22/17 07:30 04/22/17 07:30 04/22/17 07:30 04/22/17 07:30 04/22/17 07:30 Intake and Output: 04/22/17 04/22/17 06:59 18:59 Intake Total 2590 Output Total 1100 Balance 1490 - Medications Medications: Current Medications Enoxaparin Sodium (Lovenox) 30 mg SC DAILY [facility] PRN Reason: Protocol Last Admin: 04/22/17 09:36 Dose: 30 mg Famotidine (Pepcid) 40 mg PO HS [facility] Last Admin: 04/21/17 22:12 Dose: 40 mg Hydromorphone HCl (Dilaudid) 0.25 mg IVP Q6H PRN PRN Reason: Pain, Mild (1-3) Last Admin: 04/21/17 23:03 Dose: 0.25 mg Cefepime HCl (Maxipime 1gm) 1 gm in 100 mls @ 100 mls/hr IVPB Q12 [facility] PRN Reason: Protocol Last Admin: 04/21/17 22:13 Dose: 100 mls/hr Sodium Chloride (Sodium Chloride 0.9%) 1,000 mls @ 100 mls/hr IV .Q10H [facility] Last Admin: 04/22/17 08:39 Dose: 100 mls/hr Vancomycin HCl (Vancomycin 1gm) 1 gm in 250 mls @ 167 mls/hr IVPB Q12 [facility] PRN Reason: Protocol Last Admin: 04/22/17 09:09 Dose: 167 mls/hr Insulin Human Regular (Humulin R Low) 0 units SC ACHS [facility] PRN Reason: Protocol Last Admin: 04/22/17 08:39 Dose: 2 units Metformin HCl (Glucophage) 1,000 mg PO BID [facility] Last Admin: 04/22/17 09:36 Dose: 1,000 mg Silver Sulfadiazine (Silvadene 1% 25 Gm) 0 gm TP DAILY [facility] - Labs Labs: 04/22/17 06:15 04/22/17 06:15 - Constitutional Appears: Non-toxic, No Acute Distress, Chronically Ill - Head Exam Head Exam: ATRAUMATIC, NORMOCEPHALIC - Eye Exam Eye Exam: EOMI, PERRL Pupil Exam: NORMAL ACCOMODATION, PERRL - ENT Exam ENT Exam: Mucous Membranes Moist, Normal External Ear Exam, TM's Normal Bilaterally - Neck Exam Neck Exam: Full ROM, Normal Inspection - Respiratory Exam Respiratory Exam: Clear to Ausculation Bilateral, NORMAL BREATHING PATTERN. absent: Rales, Rhonchi, Wheezes - Cardiovascular Exam Cardiovascular Exam: REGULAR RHYTHM, RRR, +S1, +S2 - GI/Abdominal Exam GI & Abdominal Exam: Soft, Normal Bowel Sounds. absent: Distended, Tenderness - Extremities Exam Additional comments: 2.5 x 2.1 x 0.1 cm wound. mildly purulent with serous drainage. mildly erythematous right foot around the base of the great toe and 2nd toe to the midtarsal area. - Neurological Exam Neurological Exam: Alert, Awake, CN II-XII Intact, Oriented x3 - Psychiatric Exam Psychiatric exam: Normal Affect, Normal Mood - Skin Skin Exam: Intact, Normal Color Assessment and Plan - Assessment and Plan (Free Text) Assessment: 61 yo male with DM presenting with right hallux wound. Currently on IV Vancomycin and Cefepime for coverage. Podiatry evaluation showing a stage III ulcer with no probing to bone. MRI of the foot pending. ESR of 59. Hgb A1c of 12.4. Local wound care as per podiatry. No leukocytosis. Supportive care. The patient has mild erythema of the base of the great toe and 2nd toe to midtarsal area. Thank you for allowing me to participate in the care of the patient, we will follow with you.
--- NOTE | 2017-04-22 15:04 | CP.PCM.PN ---
Subjective - Date & Time of Evaluation Date of Evaluation: 04/22/17 Time of Evaluation: 15:01 - Subjective Subjective: 61 y/o male with PMHx of DM seen and evaluated at bedside this morning for draining wound on the right hallux. Patient appears to be resting comfortably in his bed and denies of any acute overnight events. Patient is AAOx3 and in NAD. Patient denies of any overnight F/N/V/C/SOB/CP today. Denies of any pedal complains at this time. Objective - Vital Signs/Intake and Output Vital Signs (last 24 hours): Temp Pulse Resp BP Pulse Ox 97.9 F 53 L 18 121/77 96 04/22/17 07:30 04/22/17 07:30 04/22/17 07:30 04/22/17 07:30 04/22/17 07:30 Intake and Output: 04/22/17 04/22/17 06:59 18:59 Intake Total 2590 600 Output Total 1100 Balance 1490 600 - Medications Medications: Current Medications Enoxaparin Sodium (Lovenox) 30 mg SC DAILY [facility] PRN Reason: Protocol Last Admin: 04/22/17 09:36 Dose: 30 mg Famotidine (Pepcid) 40 mg PO HS [facility] Last Admin: 04/21/17 22:12 Dose: 40 mg Hydromorphone HCl (Dilaudid) 0.25 mg IVP Q6H PRN PRN Reason: Pain, Mild (1-3) Last Admin: 04/21/17 23:03 Dose: 0.25 mg Cefepime HCl (Maxipime 1gm) 1 gm in 100 mls @ 100 mls/hr IVPB Q12 [facility] PRN Reason: Protocol Last Admin: 04/22/17 11:53 Dose: 100 mls/hr Sodium Chloride (Sodium Chloride 0.9%) 1,000 mls @ 100 mls/hr IV .Q10H [facility] Last Admin: 04/22/17 08:39 Dose: 100 mls/hr Vancomycin HCl (Vancomycin 1gm) 1 gm in 250 mls @ 167 mls/hr IVPB Q12 [facility] PRN Reason: Protocol Last Admin: 04/22/17 09:09 Dose: 167 mls/hr Insulin Human Regular (Humulin R Low) 0 units SC ACHS [facility] PRN Reason: Protocol Last Admin: 04/22/17 12:24 Dose: 3 units Metformin HCl (Glucophage) 1,000 mg PO BID [facility] Last Admin: 04/22/17 09:36 Dose: 1,000 mg Silver Sulfadiazine (Silvadene 1% 25 Gm) 0 gm TP DAILY [facility] - Labs Labs: 04/22/17 06:15 04/22/17 06:15 - Constitutional Appears: Well, Non-toxic, No Acute Distress - Extremities Exam Extremities Exam: absent: Calf Tenderness Additional comments: Bilateral LE exam VASC: DP/PT pulses are palpable 2/4 bilaterally, Cap refill time: < 3 sec to all digits, Temp gradient: warm to cool from proximal to distal bilaterally, mild non-pitting edema noted on the right hallux DERM: Wound measuring 2.5 cm x 2.1 cm x 0.1 cm at the level of plantar 1st MTPJ , Wound bed is 75% grannular and 25% fibrotic with hyperpigmented island at the distal lateral aspect of the wound, mild purulent with serous drainage noted from the wound bed, no probe to bone, tunneling up to approx. 0.2 cm noted on the plantar medial aspect, no probe to bone, surrounding erythema which extends to the dorsum of the hallux as well as dorsal medial midfoot NEURO: Protective sensation grossly diminished ORTHO: no pain or tenderness on palpation of the ulcerated site on the right foot, Active ROM intact at the ankle joint, and forefoot with no complains - Neurological Exam Neurological Exam: Alert, Awake, Oriented x3 - Psychiatric Exam Psychiatric exam: Normal Affect, Normal Mood Assessment and Plan - Assessment and Plan (Free Text) Assessment: 61 y/o male evaluated at bedside for wound on the right hallux secondary to diabetic neuropathy Plan: Patient seen and evaluated at bedside with attending Dr. Eubanks Labs, vitals and charts reviewed - afebrile, WBC @ 8.6 today ESR and CRP levels are elevated; HbA1c @ 12.4% Wound was de-roofed which expressed approx 2 cc of purulent drainage Wound cleaned with saline and dressing applied using silvadine, DSD Wound cultures - pending Forefoot wedge shoe - educated to walk in the shoe and prevent from putting any pressure on the wound X-rays of the right foot reviewed: - no soft tissue emphysema or darshan cortical erosions noted indicating gas or active OM MRI of the right foot ordered - pending IV abx as per ID - Vancomycin Podiatry to continue to follow patient while in-house
--- NOTE | 2017-04-22 15:45 | MRI ---
PROCEDURE: MRI of the right foot HISTORY: plantar right hallux wound COMPARISON: TECHNIQUE: MRI of the right foot was performed in multiple planes using multiple pulse sequences. FINDINGS: There is a large amount of subcutaneous edema over the dorsum of the foot. This could be due to cellulitis or passive edema. There is no marrow edema to suggest osteomyelitis. There is some circumferential subcutaneous edema and thickening around the big toe. IMPRESSION: Subcutaneous edema over the dorsum of the foot and around the big toe. No evidence of osteomyelitis
[2017-04-22] MEDS: HYDROmorphone 0.5 mg/0.5 ml ISec IVP PRN (21:28)
[2017-04-23 07:04] LABS: HEMATOCRIT 39.3 % (42.0-52.0); MEAN CELL VOLUME 90.6 fl (80.0-105.0); MEAN CORPUSCULAR HEMOGLOBIN 30.6 pg (25.0-35.0); MEAN CORPUSCULAR HGB CONC 33.8 g/dl (31.0-37.0); MEAN PLATELET VOLUME 10.2 fl (7.0-11.0); RED CELL DISTRIBUTION WIDTH 11.7 % (11.5-14.5); WHITE BLOOD COUNT 6.8 10^3/ul (4.5-11.0)
[2017-04-23 07:51] LABS: BLOOD UREA NITROGEN 8 mg/dL (7-21); CALCIUM 8.9 mg/dL (8.4-10.5); CARBON DIOXIDE 29 mmol/L (21-33); CHLORIDE 104 mmol/L (98-107); GFR AFRICAN-AMERICAN > 60; GLUCOSE,RANDOM 228 mg/dL (70-110); SODIUM 138 mmol/L (132-148)
[2017-04-23] MEDS: Insulin Reg-LOW-Coverage SC SCH ×3 (08:20→16:13)
--- NOTE | 2017-04-23 08:48 | PN ---
DATE: 04/22/2017 SUBJECTIVE: The patient is a 61-year-old male. The patient is seen and examined at the bedside, looking comfortable. Still has draining of wound on the right hallux. Does not know when the wound occurred. The patient felt feverish and chills on the night of , but today no nausea, vomiting or diarrhea. No hematuria or hematochezia. No swelling of the legs. No chest pain. No palpitations. No headache. No dizziness. PHYSICAL EXAMINATION: VITAL SIGNS: Temperature of 97.9, pulse of 53, respiratory rate of 18, blood pressure of 120/77, and pulse oximetry of 96%. HEENT: Head is normocephalic and atraumatic. Eyes, PERRLA. Extraocular muscles are intact. Conjunctivae are clear. Nose is patent. Mucous membranes are moist. NECK: Supple. No carotid bruits. No JVD or thyromegaly. CHEST: Bilaterally symmetrical. HEART: S1 and S2 positive. LUNGS: Clear to auscultation. ABDOMEN: Soft. Bowel sounds present. No organomegaly. EXTREMITIES: No edema. No cyanosis except dressing on his foot. NEUROLOGIC: The patient is awake and alert. Moving all 4 extremities. MEDICATIONS: Lovenox, Pepcid, Dilaudid, Maxipime, NS, vancomycin, insulin and Glucophage. LABORATORY DATA: White blood cell of 8.6, hemoglobin of 12.8, hematocrit of 38.4, and platelets of 205. Sodium is 136, potassium is 4.0, BUN is 9, creatinine is 0.8, and glucose is 237. ASSESSMENT AND PLAN: Mr. Alexandro Umana is a 61-year-old male with anemia, hyperglycemia, has right hallux wound, currently on vancomycin and cefepime for coverage. Podiatry evaluation is done showed stage III ulcers with no probing of bone. Magnetic resonance imaging of the foot done and erythrocyte sedimentation rate of 59 and hemoglobin A1c is 12.4. Local wound care as per Podiatry. The patient had erythema of the great toe and the second toe of the metatarsal area. Magnetic resonance imaging of the foot showed subcutaneous edema over the dorsum of the foot and around the big toe. No evidence of osteomyelitis. We will continue present treatment. Gastrointestinal and deep venous thrombosis prophylaxis. Repeat laboratories. Evelin Kerr MD [facility] # [id number]
[2017-04-23] MEDS: Cefepime 1gm in NS 100ml 1 GM/100 ML BAG IVPB SCH ×2 (09:01→22:43)
[2017-04-23] MEDS: Enoxaparin 30 mg Syringe SC SCH (09:01)
[2017-04-23] MEDS: Silver Sulfadiazine 1% Cream (25 gm) TP SCH (09:02)
[2017-04-23] MEDS: Vancomycin 1gm in NS 250ml 1 GM/250 ML BAG IVPB SCH ×2 (09:29→22:43)
--- NOTE | 2017-04-23 10:42 | CP.PCM.PN ---
Subjective - Date & Time of Evaluation Date of Evaluation: 04/23/17 Time of Evaluation: 10:37 - Subjective Subjective: 61 y/o male with PMHx of DM seen and evaluated at bedside this morning for draining wound on the right hallux. Patient appears to be resting comfortably in his bed and denies of any acute overnight events. Patient is AAOx3 and in NAD. Patient denies of any overnight F/N/V/C/SOB/CP today. Denies of any pedal complains at this time. Objective - Vital Signs/Intake and Output Vital Signs (last 24 hours): Temp Pulse Resp BP Pulse Ox 97.9 F 71 20 124/88 97 04/23/17 07:00 04/23/17 07:00 04/23/17 07:00 04/23/17 07:00 04/23/17 07:00 Intake and Output: 04/23/17 04/23/17 06:59 18:59 Intake Total 840 Output Total 1000 Balance -160 - Medications Medications: Current Medications Enoxaparin Sodium (Lovenox) 30 mg SC DAILY [facility] PRN Reason: Protocol Last Admin: 04/23/17 09:01 Dose: 30 mg Famotidine (Pepcid) 40 mg PO HS [facility] Last Admin: 04/22/17 21:28 Dose: 40 mg Hydromorphone HCl (Dilaudid) 0.25 mg IVP Q6H PRN PRN Reason: Pain, Mild (1-3) Last Admin: 04/22/17 21:28 Dose: 0.25 mg Cefepime HCl (Maxipime 1gm) 1 gm in 100 mls @ 100 mls/hr IVPB Q12 [facility] PRN Reason: Protocol Last Admin: 04/23/17 09:01 Dose: 100 mls/hr Sodium Chloride (Sodium Chloride 0.9%) 1,000 mls @ 100 mls/hr IV .Q10H [facility] Last Admin: 04/22/17 08:39 Dose: 100 mls/hr Vancomycin HCl (Vancomycin 1gm) 1 gm in 250 mls @ 167 mls/hr IVPB Q12 [facility] PRN Reason: Protocol Last Admin: 04/23/17 09:29 Dose: 167 mls/hr Insulin Human Regular (Humulin R Low) 0 units SC ACHS [facility] PRN Reason: Protocol Last Admin: 04/23/17 08:20 Dose: 2 units Metformin HCl (Glucophage) 1,000 mg PO BID [facility] Last Admin: 04/23/17 09:01 Dose: Not Given Silver Sulfadiazine (Silvadene 1% 25 Gm) 0 gm TP DAILY [facility] Last Admin: 04/23/17 09:02 Dose: 1 gm - Labs Labs: 04/23/17 06:30 04/23/17 06:30 - Constitutional Appears: Well, Non-toxic, No Acute Distress - Extremities Exam Extremities Exam: absent: Calf Tenderness Additional comments: Bilateral LE exam VASC: DP/PT pulses are palpable 2/4 bilaterally, Cap refill time: < 3 sec to all digits, Temp gradient: warm to cool from proximal to distal bilaterally, mild non-pitting edema noted on the right hallux DERM: Wound measuring 2.5 cm x 2.1 cm x 0.1 cm at the level of plantar 1st MTPJ , Wound bed is 65% grannular and 35% fibrotic with hyperpigmented island at the distal lateral aspect of the wound, mild purulent with serous drainage noted from the wound bed, no probe to bone, tunneling up to approx. 0.2 cm noted on the plantar medial aspect, no probe to bone, surrounding erythema which extends to the dorsum of the hallux as well as dorsal medial midfoot - appears to be lot less than yesterday NEURO: Protective sensation grossly diminished ORTHO: no pain or tenderness on palpation of the ulcerated site on the right foot, Active ROM intact at the ankle joint, and forefoot with no complains - Neurological Exam Neurological Exam: Alert, Awake, Oriented x3 - Psychiatric Exam Psychiatric exam: Normal Affect, Normal Mood Assessment and Plan - Assessment and Plan (Free Text) Assessment: 61 y/o male evaluated at bedside for wound on the right hallux secondary to diabetic neuropathy Plan: Patient seen and evaluated at bedside with attending Dr. Eubanks Labs, vitals and charts reviewed - afebrile, WBC @ 6.8 today (trending down) ESR and CRP levels are elevated; HbA1c @ 12.4% Wound cleaned with saline and dressing applied using silvadine, DSD Wound cultures - Gram positive cocci and coag negative staph IV abx as per ID - Vancomycin, cefepime X-rays of the right foot reviewed: - no soft tissue emphysema or darshan cortical erosions noted indicating gas or active OM MRI of the right foot: - Subacute edema over the dorsum of the foot and the big toe. No evidence of OM Forefoot wedge shoe - educated to walk in the shoe and prevent from putting any pressure on the wound Patient is stable from podiatry standpoint - upon discharge please follow up with Dr. Eubanks in the wound care center Podiatry to continue to follow patient while in-house
[2017-04-23] MEDS: Sodium Chloride 0.9% 1,000 ML IV SCH (16:14)
--- NOTE | 2017-04-23 16:55 | CP.PCM.PN ---
Subjective - Date & Time of Evaluation Date of Evaluation: 04/23/17 Time of Evaluation: 15:00 - Subjective Subjective: Infectious Disease Follow Up: April 22, 2017 61 yo male with history of DM presenting with draining wound on the right hallux. He does not know when the wound occurred. The patient felt fevers and chills on the night of . No complaints currently. The patient had MRI showing subcutaneous edema and signs of cellulitis but no osteomyelitis. Discussed with Dr. Eubanks regarding patient. Objective - Vital Signs/Intake and Output Vital Signs (last 24 hours): Temp Pulse Resp BP Pulse Ox 97.9 F 71 20 124/88 97 04/23/17 07:00 04/23/17 07:00 04/23/17 07:00 04/23/17 07:00 04/23/17 07:00 Intake and Output: 04/23/17 04/23/17 06:59 18:59 Intake Total 840 Output Total 1000 Balance -160 - Medications Medications: Current Medications Enoxaparin Sodium (Lovenox) 30 mg SC DAILY [facility] PRN Reason: Protocol Last Admin: 04/23/17 09:01 Dose: 30 mg Famotidine (Pepcid) 40 mg PO HS [facility] Last Admin: 04/22/17 21:28 Dose: 40 mg Hydromorphone HCl (Dilaudid) 0.25 mg IVP Q6H PRN PRN Reason: Pain, Mild (1-3) Last Admin: 04/22/17 21:28 Dose: 0.25 mg Cefepime HCl (Maxipime 1gm) 1 gm in 100 mls @ 100 mls/hr IVPB Q12 [facility] PRN Reason: Protocol Last Admin: 04/23/17 09:01 Dose: 100 mls/hr Sodium Chloride (Sodium Chloride 0.9%) 1,000 mls @ 100 mls/hr IV .Q10H [facility] Last Admin: 04/23/17 16:14 Dose: 100 mls/hr Vancomycin HCl (Vancomycin 1gm) 1 gm in 250 mls @ 167 mls/hr IVPB Q12 [facility] PRN Reason: Protocol Last Admin: 04/23/17 09:29 Dose: 167 mls/hr Insulin Human Regular (Humulin R Low) 0 units SC ACHS [facility] PRN Reason: Protocol Last Admin: 04/23/17 16:13 Dose: 3 units Metformin HCl (Glucophage) 1,000 mg PO BID [facility] Last Admin: 04/23/17 09:01 Dose: Not Given Silver Sulfadiazine (Silvadene 1% 25 Gm) 0 gm TP DAILY [facility] Last Admin: 04/23/17 09:02 Dose: 1 gm - Labs Labs: 04/23/17 06:30 04/23/17 06:30 - Constitutional Appears: Non-toxic, In Acute Distress, Chronically Ill - Head Exam Head Exam: ATRAUMATIC, NORMOCEPHALIC - Eye Exam Eye Exam: EOMI, PERRL Pupil Exam: NORMAL ACCOMODATION, PERRL - ENT Exam ENT Exam: Mucous Membranes Moist, Normal External Ear Exam, TM's Normal Bilaterally - Neck Exam Neck Exam: Full ROM, Normal Inspection - Respiratory Exam Respiratory Exam: Clear to Ausculation Bilateral, NORMAL BREATHING PATTERN. absent: Rales, Rhonchi, Wheezes - Cardiovascular Exam Cardiovascular Exam: REGULAR RHYTHM, RRR, +S1, +S2 - GI/Abdominal Exam GI & Abdominal Exam: Soft, Normal Bowel Sounds. absent: Distended, Tenderness - Extremities Exam Additional comments: 2.5 x 2.1 x 0.1 cm wound. serous drainage. mildly erythematous right foot around the base of the great toe and 2nd toe to the midtarsal area. - Neurological Exam Neurological Exam: Alert, Awake, CN II-XII Intact, Oriented x3 - Psychiatric Exam Psychiatric exam: Normal Affect, Normal Mood - Skin Skin Exam: Intact, Normal Color Assessment and Plan - Assessment and Plan (Free Text) Assessment: 61 yo male with DM presenting with right hallux wound. Currently on IV Vancomycin and Cefepime for coverage. Podiatry evaluation showing a stage III ulcer with no probing to bone. MRI of the foot pending. ESR of 59. Hgb A1c of 12.4. Local wound care as per podiatry. No leukocytosis. Supportive care. The patient has mild erythema of the base of the great toe and 2nd toe to midtarsal area. Improving. Thank you for allowing me to participate in the care of the patient, we will follow with you.
[2017-04-23] MEDS: HYDROmorphone 0.5 mg/0.5 ml ISec IVP PRN (22:42)
[2017-04-24] MEDS: Insulin Reg-LOW-Coverage SC SCH ×5 (04:30→22:43)
[2017-04-24] MEDS: Sodium Chloride 0.9% 1,000 ML IV SCH ×2 (07:35→16:13)
--- NOTE | 2017-04-24 08:39 | PN ---
SUBJECTIVE: The patient is 61 years old male. The patient is seen and examined at the bedside, looking comfortable. His nephew was sitting on the bedside also. No nausea, vomiting, or diarrhea. No hematuria or hematochezia. Still having draining wound on the right hallux. No fever. No chills. PHYSICAL EXAMINATION: VITAL SIGNS: Temperature 97.9, pulse 71, respirations 20, blood pressure 124/88, and pulse oximeter 97%. HEENT: Head is normocephalic and atraumatic. Eyes, PERRLA. Extraocular muscles intact. Conjunctivae are clear. Nose is patent. Mucous membranes are moist. NECK: Supple. No carotid bruits. No JVD or thyromegaly. CHEST: Bilaterally symmetrical. HEART: S1 and S2 positive. LUNGS: Clear to auscultation. ABDOMEN: Soft. Bowel sounds positive. No organomegaly. EXTREMITIES: No edema. No cyanosis. NEUROLOGIC: The patient is awake, alert. Moving all 4 extremities. No focal deficits. MEDICATIONS: Lovenox, Pepcid, Dilaudid, Nexium, NS, vancomycin, insulin, Glucophage, Silvadene. LABORATORY DATA: White blood cells 6.8, hemoglobin 13.3, hematocrit 39.3, and platelets 227,000. Sodium 138, potassium 4.0, BUN 8, creatinine 0.8, glucose 228. ASSESSMENT AND PLAN: The patient is a 61-year-old male with anemia, hyperglycemia, has right hallux wound, currently getting IV vancomycin and cefepime for coverage. Podiatry is on the case and according to them, the patient has stage III ulcer with no probing to the bone. MRI of the foot done. ESR is 59. Hemoglobin A1c 12.4, uncontrolled diabetes mellitus, supportive care. I reviewed MRI of the foot; shows subcutaneous edema over the dorsum of the foot and around the big toe. No evidence of osteomyelitis. I reviewed Dr. Palma's notes and Podiatry notes also. Gastrointestinal and deep venous thrombosis prophylaxis. Repeat labs. Discussion done with the patient and the patient's nephew. The patient already got education from [employer] and sales development consultant. We will follow. Evelin Kerr MD
[2017-04-24 08:49] VITALS: O2SAT 98
[2017-04-24] MEDS: Vancomycin 1gm in NS 250ml 1 GM/250 ML BAG IVPB SCH ×2 (09:21→22:55)
[2017-04-24] MEDS: GlipiZIDE 10 mg SR Tab PO SCH (09:21)
[2017-04-24] MEDS: Enoxaparin 30 mg Syringe SC SCH (09:22)
[2017-04-24] MEDS: Cefepime 1gm in NS 100ml 1 GM/100 ML BAG IVPB SCH ×2 (09:23→21:33)
[2017-04-24] MEDS: Silver Sulfadiazine 1% Cream (25 gm) TP SCH (09:25)
--- NOTE | 2017-04-24 11:25 | CP.PCM.PN ---
Subjective - Date & Time of Evaluation Date of Evaluation: 04/24/17 Time of Evaluation: 11:22 - Subjective Subjective: 61 y/o male seen and evaluated at bedside this morning with attending Dr. Eubanks for draining wound on the right hallux. Patient appears to be resting comfortably in his bed and denies of any acute overnight events. Patient is AAOx3 and in NAD. Patient denies of any overnight F/N/V/C/SOB/CP today. Denies of any pedal complains at this time. Objective - Vital Signs/Intake and Output Vital Signs (last 24 hours): Temp Pulse Resp BP Pulse Ox 97.7 F 64 20 114/72 98 04/24/17 08:49 04/24/17 08:49 04/24/17 08:49 04/24/17 08:49 04/24/17 08:49 Intake and Output: 04/24/17 04/24/17 06:59 18:59 Intake Total 960 Output Total 450 Balance 510 - Medications Medications: Current Medications Enoxaparin Sodium (Lovenox) 30 mg SC DAILY [facility] PRN Reason: Protocol Last Admin: 04/24/17 09:22 Dose: 30 mg Famotidine (Pepcid) 40 mg PO HS [facility] Last Admin: 04/23/17 22:43 Dose: 40 mg Glipizide (Glucotrol Xl) 10 mg PO DAILY [facility] Last Admin: 04/24/17 09:21 Dose: 10 mg Hydromorphone HCl (Dilaudid) 0.25 mg IVP Q6H PRN PRN Reason: Pain, Mild (1-3) Last Admin: 04/23/17 22:42 Dose: 0.25 mg Cefepime HCl (Maxipime 1gm) 1 gm in 100 mls @ 100 mls/hr IVPB Q12 [facility] PRN Reason: Protocol Last Admin: 04/24/17 09:23 Dose: 100 mls/hr Sodium Chloride (Sodium Chloride 0.9%) 1,000 mls @ 100 mls/hr IV .Q10H [facility] Last Admin: 04/24/17 07:35 Dose: Not Given Vancomycin HCl (Vancomycin 1gm) 1 gm in 250 mls @ 167 mls/hr IVPB Q12 [facility] PRN Reason: Protocol Last Admin: 04/24/17 09:21 Dose: 167 mls/hr Insulin Human Regular (Humulin R Low) 0 units SC ACHS [facility] PRN Reason: Protocol Last Admin: 04/24/17 07:53 Dose: 2 units Metformin HCl (Glucophage) 1,000 mg PO BID [facility] Last Admin: 04/24/17 09:23 Dose: Not Given Silver Sulfadiazine (Silvadene 1% 25 Gm) 0 gm TP DAILY [facility] Last Admin: 04/24/17 09:25 Dose: 25 gm Sitagliptin Phosphate (Januvia) 100 mg PO DAILY [facility] Last Admin: 04/24/17 09:21 Dose: 100 mg - Labs Labs: 04/23/17 06:30 04/23/17 06:30 - Constitutional Appears: Well, Non-toxic, No Acute Distress - Extremities Exam Extremities Exam: absent: Calf Tenderness Additional comments: Bilateral LE exam VASC: DP/PT pulses are palpable 2/4 bilaterally, Cap refill time: < 3 sec to all digits, Temp gradient: warm to cool from proximal to distal bilaterally, mild non-pitting edema noted on the right hallux DERM: Wound measuring 2.5 cm x 2.1 cm x 0.1 cm at the level of plantar 1st MTPJ , Wound bed is 65% grannular and 35% fibrotic with hyperpigmented island at the distal lateral aspect of the wound, mild serous drainage noted from the wound bed, no probe to bone, tunneling up to approx. 0.2 cm noted on the plantar medial aspect, surrounding erythema which extends to the dorsum of the hallux as well as dorsal medial midfoot - appears to be lot less than yesterday NEURO: Protective sensation grossly diminished ORTHO: no pain or tenderness on palpation of the ulcerated site on the right foot, Active ROM intact at the ankle joint, and forefoot with no complains - Neurological Exam Neurological Exam: Alert, Awake, Oriented x3 - Psychiatric Exam Psychiatric exam: Normal Affect, Normal Mood Assessment and Plan - Assessment and Plan (Free Text) Assessment: 61 y/o male evaluated at bedside for wound on the right hallux secondary to diabetic neuropathy Plan: Patient seen and evaluated at bedside with attending Dr. Eubanks Labs, vitals and charts reviewed - afebrile, WBC @ 6.8 (04/23) (trending down) ESR and CRP levels are elevated; HbA1c @ 12.4% Wound cleaned with saline and dressing applied using silvadine, DSD Wound cultures - Gram positive cocci and coag negative staph IV abx as per ID - Vancomycin, cefepime X-rays of the right foot reviewed: - no soft tissue emphysema or darshan cortical erosions noted indicating gas or active OM MRI of the right foot: - Subacute edema over the dorsum of the foot and the big toe. No evidence of OM Forefoot wedge shoe - educated to walk in the shoe and prevent from putting any pressure on the wound Patient is stable from podiatry standpoint - upon discharge please follow up with Dr. Eubanks in the wound care center Podiatry to continue to follow patient while in-house
--- NOTE | 2017-04-24 18:11 | CP.PCM.PN ---
Subjective - Date & Time of Evaluation Date of Evaluation: 04/24/17 Time of Evaluation: 17:00 - Subjective Subjective: Infectious Disease Follow Up: April 24, 2017 61 yo male with history of DM presenting with draining wound on the right hallux. He does not know when the wound occurred. The patient felt fevers and chills on the night of . No complaints currently. The patient had MRI showing subcutaneous edema and signs of cellulitis but no osteomyelitis. The right foot is improving. Discussed with Dr. Eubanks regarding patient. Objective - Vital Signs/Intake and Output Vital Signs (last 24 hours): Temp Pulse Resp BP Pulse Ox 97.7 F 64 20 114/72 98 04/24/17 08:49 04/24/17 08:49 04/24/17 08:49 04/24/17 08:49 04/24/17 08:49 Intake and Output: 04/24/17 04/24/17 06:59 18:59 Intake Total 960 1240 Output Total 450 Balance 510 1240 - Medications Medications: Current Medications Enoxaparin Sodium (Lovenox) 30 mg SC DAILY [facility] PRN Reason: Protocol Last Admin: 04/24/17 09:22 Dose: 30 mg Famotidine (Pepcid) 40 mg PO HS [facility] Last Admin: 04/23/17 22:43 Dose: 40 mg Glipizide (Glucotrol Xl) 10 mg PO DAILY [facility] Last Admin: 04/24/17 09:21 Dose: 10 mg Hydromorphone HCl (Dilaudid) 0.25 mg IVP Q6H PRN PRN Reason: Pain, Mild (1-3) Last Admin: 04/23/17 22:42 Dose: 0.25 mg Cefepime HCl (Maxipime 1gm) 1 gm in 100 mls @ 100 mls/hr IVPB Q12 [facility] PRN Reason: Protocol Last Admin: 04/24/17 09:23 Dose: 100 mls/hr Sodium Chloride (Sodium Chloride 0.9%) 1,000 mls @ 100 mls/hr IV .Q10H [facility] Last Admin: 04/24/17 16:13 Dose: 100 mls/hr Vancomycin HCl (Vancomycin 1gm) 1 gm in 250 mls @ 167 mls/hr IVPB Q12 [facility] PRN Reason: Protocol Last Admin: 04/24/17 09:21 Dose: 167 mls/hr Insulin Human Regular (Humulin R Low) 0 units SC ACHS [facility] PRN Reason: Protocol Last Admin: 04/24/17 16:12 Dose: 2 units Metformin HCl (Glucophage) 1,000 mg PO BID [facility] Last Admin: 04/24/17 17:08 Dose: Not Given Silver Sulfadiazine (Silvadene 1% 25 Gm) 0 gm TP DAILY [facility] Last Admin: 04/24/17 09:25 Dose: 25 gm Sitagliptin Phosphate (Januvia) 100 mg PO DAILY [facility] Last Admin: 04/24/17 09:21 Dose: 100 mg - Labs Labs: 04/23/17 06:30 04/23/17 06:30 - Constitutional Appears: Non-toxic, No Acute Distress, Chronically Ill - Head Exam Head Exam: ATRAUMATIC, NORMOCEPHALIC - Eye Exam Eye Exam: EOMI, PERRL Pupil Exam: NORMAL ACCOMODATION, PERRL - ENT Exam ENT Exam: Mucous Membranes Moist, Normal External Ear Exam, TM's Normal Bilaterally - Neck Exam Neck Exam: Full ROM, Normal Inspection - Respiratory Exam Respiratory Exam: Clear to Ausculation Bilateral, NORMAL BREATHING PATTERN. absent: Rales, Rhonchi, Wheezes - Cardiovascular Exam Cardiovascular Exam: REGULAR RHYTHM, RRR, +S1, +S2 - GI/Abdominal Exam GI & Abdominal Exam: Soft, Normal Bowel Sounds. absent: Distended, Tenderness - Extremities Exam Additional comments: 2.5 x 2.1 x 0.1 cm wound. serous drainage. mildly erythematous right foot around the base of the great toe and 2nd toe to the midtarsal area. Overall improvement. - Neurological Exam Neurological Exam: Alert, Awake, CN II-XII Intact, Oriented x3 - Psychiatric Exam Psychiatric exam: Normal Affect, Normal Mood - Skin Skin Exam: Intact, Normal Color Assessment and Plan - Assessment and Plan (Free Text) Assessment: 61 yo male with DM presenting with right hallux wound. Currently on IV Vancomycin and Cefepime for coverage. Podiatry evaluation showing a stage III ulcer with no probing to bone. MRI of the foot pending. ESR of 59. Hgb A1c of 12.4. Local wound care as per podiatry. No leukocytosis. Supportive care. The patient has mild erythema of the base of the great toe and 2nd toe to midtarsal area. Improving. Can consider use of 5 days of IV antibiotics then switching to oral Keflex use at 500mg PO TID for 10 days more. Thank you for allowing me to participate in the care of the patient, we will follow with you.
[2017-04-24] MEDS ORDERED: HYDROmorphone 0.5 mg/0.5 ml ISec IVP PRN (21:34)
--- NOTE | 2017-04-24 23:13 | PN ---
DATE: SUBJECTIVE: The patient is a 61-year-old male. The patient is seen and examined at the bedside, looking comfortable. No nausea, vomiting, or diarrhea. No hematuria or hematochezia. No headache. No dizziness. Having dressing on the right foot. No fever. No chills. Right hallux has still pain, but less. PHYSICAL EXAMINATION VITAL SIGNS: Temperature 97.7, pulse 64, respiratory rate 20, blood pressure 140/72, and pulse oximetry 98%. HEENT: Head normocephalic and atraumatic. Eyes; PERRLA. Extraocular muscles intact. Conjunctivae are clear. Nose is patent. Mucous membranes moist. NECK: Supple. No carotid bruits. No JVD or thyromegaly. CHEST: Bilaterally symmetrical. HEART: S1 and S2 positive. LUNGS: Clear to auscultation. ABDOMEN: Soft. Bowel sounds present. No organomegaly. EXTREMITIES: No edema. No cyanosis. NEUROLOGIC: The patient is awake and alert. Moving all four extremities. No focal deficits. MEDICATIONS: Lovenox, Pepcid, Glucotrol, Dilaudid, cefepime, NS, vancomycin, insulin, Glucophage, Silvadene, Januvia. LABORATORY DATA: White blood cells 6.8, hemoglobin 13.3, hematocrit 39.3, and platelets 227,000. Sodium 138, potassium 4.0, BUN 8, creatinine 0.8, and glucose 228. ASSESSMENT AND PLAN: Mr. Lyndsay Mc is a 61-year-old male with anemia, uncontrolled diabetes mellitus. We will discontinue the metformin and started on Januvia and Glucotrol. Has right hallux wound. Getting IV vancomycin and cefepime for coverage. According to Podiatry, the patient has stage III ulcer with no probing on the bone. MRI of the foot showed no osteomyelitis. Uncontrolled diabetes mellitus, hemoglobin A1c 12.4. Local wound care is carried out by the Podiatry. No fever. No chills. Did have mild erythema on the base of the great toe and second toe of the metatarsal area, improving. He is planning five days of IV antibiotics then switching to oral Keflex use of 500 p.o. t.i.d. for 10 days more as by Dr. Palma, Infectious Disease. Gastrointestinal and deep venous thrombosis prophylaxis. We will follow up. Evelin Kerr MD [facility] # [id number]
[2017-04-25] MEDS: Sodium Chloride 0.9% 1,000 ML IV SCH (05:09)
[2017-04-25] MEDS: Insulin Reg-LOW-Coverage SC SCH ×2 (08:05→12:01)
[2017-04-25 08:33] VITALS: BP 125/69; PULSE 73; RESP 19; TEMP 97.9
[2017-04-25] MEDS: Cefepime 1gm in NS 100ml 1 GM/100 ML BAG IVPB SCH (09:24)
[2017-04-25] MEDS: GlipiZIDE 10 mg SR Tab PO SCH (09:26)
[2017-04-25] MEDS: Enoxaparin 30 mg Syringe SC SCH (09:26)
[2017-04-25] MEDS: Silver Sulfadiazine 1% Cream (25 gm) TP SCH (09:29)
[2017-04-25] MEDS: Vancomycin 1gm in NS 250ml 1 GM/250 ML BAG IVPB SCH (09:29)
--- NOTE | 2017-04-25 13:51 | CP.PCM.PN ---
<Reese Velázquez - Last Filed: 04/25/17 17:46> Subjective - Date & Time of Evaluation Date of Evaluation: 04/25/17 Time of Evaluation: 13:50 - Subjective Subjective: Podiatry Progress Note 61 y/o male seen and evaluated at bedside this morning for right hallux plantar ulceration. Patient hemodyamically stable, NAD. Denies any acute events overnight. Patient aware he will be discharged this afternoon and is to make an appointment to follow up in the wound care center next week. Denies N/V/F/D/C/ SOB/calf pain. Offers no pedal complaints this visit. Objective - Vital Signs/Intake and Output Vital Signs (last 24 hours): Temp Pulse Resp BP Pulse Ox 97.9 F 73 19 125/69 98 04/25/17 08:32 04/25/17 08:32 04/25/17 08:32 04/25/17 08:32 04/25/17 08:32 Intake and Output: 04/25/17 04/25/17 06:59 18:59 Intake Total 3720 Output Total 900 Balance 2820 - Medications Medications: Current Medications Enoxaparin Sodium (Lovenox) 30 mg SC DAILY [facility] PRN Reason: Protocol Last Admin: 04/25/17 09:26 Dose: 30 mg Famotidine (Pepcid) 40 mg PO HS [facility] Last Admin: 04/24/17 21:33 Dose: 40 mg Glipizide (Glucotrol Xl) 10 mg PO DAILY [facility] Last Admin: 04/25/17 09:26 Dose: 10 mg Hydromorphone HCl (Dilaudid) 0.25 mg IVP Q8H PRN PRN Reason: Pain, Mild (1-3) Last Admin: 04/24/17 21:49 Dose: 0.25 mg Cefepime HCl (Maxipime 1gm) 1 gm in 100 mls @ 100 mls/hr IVPB Q12 [facility] PRN Reason: Protocol Last Admin: 04/25/17 09:24 Dose: 100 mls/hr Sodium Chloride (Sodium Chloride 0.9%) 1,000 mls @ 100 mls/hr IV .Q10H [facility] Last Admin: 04/25/17 05:09 Dose: 100 mls/hr Vancomycin HCl (Vancomycin 1gm) 1 gm in 250 mls @ 167 mls/hr IVPB Q12 [facility] PRN Reason: Protocol Last Admin: 04/25/17 09:29 Dose: 167 mls/hr Insulin Human Regular (Humulin R Low) 0 units SC ACHS [facility] PRN Reason: Protocol Last Admin: 04/25/17 12:01 Dose: 1 units Metformin HCl (Glucophage) 1,000 mg PO BID [facility] Last Admin: 04/25/17 09:29 Dose: Not Given Silver Sulfadiazine (Silvadene 1% 25 Gm) 0 gm TP DAILY [facility] Last Admin: 04/25/17 09:29 Dose: 25 gm Sitagliptin Phosphate (Januvia) 100 mg PO DAILY [facility] Last Admin: 04/25/17 09:26 Dose: 100 mg - Labs Labs: 04/23/17 06:30 04/23/17 06:30 - Constitutional Appears: Well, Non-toxic, No Acute Distress - Extremities Exam Additional comments: Bilateral LE exam VASC: DP/PT pulses are palpable 2/4 bilaterally, Cap refill time: < 3 sec to all digits, Temp gradient: warm to cool from proximal to distal bilaterally, mild non-pitting edema noted on the right hallux DERM: Wound measuring 2.5 cm x 2.1 cm x 0.1 cm at the level of plantar 1st MTPJ - wound bed is 65% granular and 35% fibrotic with hyperpigmented island at the distal lateral aspect of the wound. Mild serous drainage noted from the wound bed. Absent probe to bone. Tunneling up to approx. 0.2 cm noted on the plantar medial aspect. Periwound erythema extends to the dorsum of the hallux as well as dorsal medial midfoot, resolving. NEURO: Protective sensation grossly diminished ORTHO: No pain on palpation to right foot plantar ulceration - Neurological Exam Neurological Exam: Alert, Awake, Oriented x3 - Psychiatric Exam Psychiatric exam: Normal Affect, Normal Mood Assessment and Plan - Assessment and Plan (Free Text) Assessment: 61 y/o male evaluated at bedside for wound on the right hallux secondary to diabetic neuropathy Plan: Patient seen and evaluated at bedside Labs, vitals and charts reviewed - afebrile ESR and CRP levels are elevated; HbA1c @ 12.4% Wound cleansed with saline and dressing applied using silvadine, DSD Wound cultures - Gram positive cocci and coag negative staph IV abx as per ID X-rays of the right foot reviewed: - no soft tissue emphysema or darshan cortical erosions noted indicating gas or active OM MRI of the right foot: - Subacute edema over the dorsum of the foot and the big toe. No evidence of OM Continue forefoot wedge shoe right foot when ambulating Patient is stable from podiatry standpoint - upon discharge please follow up in the wound care center within 1 week Discharge daily dressing change orders: apply a thin layer of Silvadene, nickel size thickness, to plantar ulceration and dress with sterile 4x4s. Please keep dressing clean/dry/intact and use cover while taking a shower. Advised patient to come back to [facility] if he shows any S&S of infection Podiatry will continue to follow patient while in house <Gonzalse Logan - Last Filed: 04/26/17 07:42> Objective - Vital Signs/Intake and Output Vital Signs (last 24 hours): Temp Pulse Resp BP Pulse Ox 97.9 F 73 19 125/69 98 04/25/17 08:32 04/25/17 08:32 04/25/17 08:32 04/25/17 08:32 04/25/17 08:32 - Labs Labs: 04/23/17 06:30 04/23/17 06:30 Attending/Attestation - Attestation I have personally seen and examined this patient.: Yes I have fully participated in the care of the patient.: Yes I have reviewed all pertinent clinical information, including history, physical exam and plan: Yes
--- NOTE | 2017-04-25 16:46 | CP.PCM.PN ---
Subjective - Date & Time of Evaluation Date of Evaluation: 04/25/17 Time of Evaluation: 13:00 - Subjective Subjective: Infectious Disease Follow Up: April 25, 2017 61 yo male with history of DM presenting with draining wound on the right hallux. He does not know when the wound occurred. The patient felt fevers and chills on the night of . No complaints currently. The patient had MRI showing subcutaneous edema and signs of cellulitis but no osteomyelitis. The right foot is improving. Completing IV antibiotics and can be switched to oral antibiotics. Objective - Vital Signs/Intake and Output Vital Signs (last 24 hours): Temp Pulse Resp BP Pulse Ox 97.9 F 73 19 125/69 98 04/25/17 08:32 04/25/17 08:32 04/25/17 08:32 04/25/17 08:32 04/25/17 08:32 Intake and Output: 04/25/17 04/25/17 06:59 18:59 Intake Total 3720 Output Total 900 Balance 2820 - Labs Labs: 04/23/17 06:30 04/23/17 06:30 - Constitutional Appears: Non-toxic, No Acute Distress, Chronically Ill - Head Exam Head Exam: ATRAUMATIC, NORMOCEPHALIC - Eye Exam Eye Exam: EOMI, PERRL Pupil Exam: NORMAL ACCOMODATION, PERRL - ENT Exam ENT Exam: Mucous Membranes Moist, Normal External Ear Exam, TM's Normal Bilaterally - Neck Exam Neck Exam: Full ROM, Normal Inspection - Respiratory Exam Respiratory Exam: Clear to Ausculation Bilateral, NORMAL BREATHING PATTERN. absent: Rales, Rhonchi, Wheezes - Cardiovascular Exam Cardiovascular Exam: REGULAR RHYTHM, RRR, +S1, +S2 - GI/Abdominal Exam GI & Abdominal Exam: Soft, Normal Bowel Sounds. absent: Distended, Tenderness - Extremities Exam Additional comments: 2.5 x 2.1 x 0.1 cm wound. serous drainage. mildly erythematous right foot around the base of the great toe and 2nd toe to the midtarsal area. Overall improvement. - Neurological Exam Neurological Exam: Alert, CN II-XII Intact, Normal Gait, Oriented x3 - Psychiatric Exam Psychiatric exam: Normal Affect, Normal Mood - Skin Skin Exam: Intact, Normal Color Additional comments: except for the right foot specifically first toe. Assessment and Plan - Assessment and Plan (Free Text) Assessment: 61 yo male with DM presenting with right hallux wound. Currently on IV Vancomycin and Cefepime for coverage. Podiatry evaluation showing a stage III ulcer with no probing to bone. MRI of the foot pending. ESR of 59. Hgb A1c of 12.4. Local wound care as per podiatry. No leukocytosis. Supportive care. The patient has mild erythema of the base of the great toe and 2nd toe to midtarsal area. Improving. Can consider use of 5 days of IV antibiotics then switching to oral Keflex use at 500mg PO TID for 10 days more. Cleared for discharge from ID perspective. Thank you for allowing me to participate in the care of the patient, we will follow with you.
--- NOTE | 2017-04-26 14:59 | DS ---
CHIEF COMPLAINT: Lower extremity problem, right foot big toe pain. HISTORY OF PRESENT ILLNESS: Mr. Alexandro Umana is a 61-year-old male with chronic uncontrolled diabetes mellitus type 2. According to him, due to financial situation, he was not able to take medicine properly and currently he is on metformin, but do not like metformin because of his stomach side effects. His hemoglobin A1c was 11 on 08/2016. He came to emergency room with right lower extremity pain from one week. The patient stated that he was seen about 2 days ago with a negative right lower extremity study of venous Doppler for DVT. The patient do not have fever, nausea, or vomiting. We admitted the patient. The chest x-ray, foot x-ray, and MRI of the foot that was negative for osteomyelitis, seen by Dr. Palma, Infectious Disease. Podiatry Dr. Eubanks got IV antibiotics. The patient improved. Because he do not like metformin, I discontinued metformin, put him on Januvia and Glucotrol. ID made IV antibiotics to p.o., sent home after clearing by ID, followup in my office. MEDICATIONS: Were provided on the bedside by outpatient [facility]. PAST MEDICAL HISTORY: Uncontrolled diabetes mellitus, noncompliance. FAMILY HISTORY: Father and mother noncontributory. SOCIAL HISTORY: Never smoke. No drugs. No ethanol. ALLERGIES: THE PATIENT IS ALLERGIC TO RAMIPRIL. REVIEW OF SYSTEMS: The patient is seen and examined at the bedside on 04/25/2017, looking comfortable. No nausea, vomiting, or diarrhea. No hematuria or hematochezia. No swelling of the legs. No chest pain. No palpitations. No headache. No dizziness. PHYSICAL EXAMINATION: VITAL SIGNS: Temperature 97.9, pulse 73, blood pressure 120/69, pulse oximetry 98, and respiratory rate of 19. HEENT: Head normocephalic and atraumatic. Eyes; PERRLA. Extraocular muscles intact. Conjunctivae are clear. Nose is patent. Mucous membranes moist. NECK: Supple. No carotid bruits. No JVD or thyromegaly. CHEST: Bilaterally symmetrical. HEART: S1 and S2 positive. LUNGS: Clear to auscultation. ABDOMEN: Soft. Bowel sounds present. No organomegaly. EXTREMITIES: No edema. No cyanosis. NEUROLOGIC: The patient is awake and alert. Moving all four extremities. No focal deficits. MEDICATIONS: Dilaudid, Glucophage, Glucotrol, insulin, Januvia, Lovenox, Maxipime, Pepcid, Silvadene, Lovenox, and vancomycin. LABORATORY DATA: White blood cells 6.8, hemoglobin 13.3, hematocrit 39.3, and platelets 227. Glucose 187, sodium 138, potassium 4.0, BUN 8, and creatinine 0.8. ASSESSMENT AND PLAN: Mr. Alexandro Umana is a 61-year-old male with leukocytosis, anemia, uncontrolled [id number] diabetes mellitus type 2, has a 2.5 x 2.1 x 0.1 cm wound with serous drainage, mild erythema of right foot around the base of the great toe and second toe to the midtarsal area. Overall, improved on the right hallux. Got intravenous vancomycin and cefepime, pruritus, had this stage III ulcer. MRI of the foot done. ESR was 59. Hemoglobin A1c of 12.4. Local wound care given. Intravenous antibiotics changed to Keflex 500 mg p.o. t.i.d. and as per Dr. Palma, can give for 10 days. Nurse practitioner write the prescription and the patient discharged home after clearing from the Infectious Disease. Followup in my office as an outpatient. Evelin Kerr MD
== END 2017-04-25 14:03 | disposition home or self-care (01) | DRG 872 ==
LOC: ED 16:38 → ERH 19:00 → 5RNO 20:51
PROVIDERS: ADMIT Internal Medicine; ATTEND Internal Medicine
DX: A41.9 Sepsis, unspecified organism (principal); L03.115 Cellulitis of right lower limb; E11.621 Type 2 diabetes mellitus with foot ulcer; L97.519 Non-pressure chronic ulcer of other part of right foot with unspecified severity; E11.40 Type 2 diabetes mellitus with diabetic neuropathy, unspecified; E11.65 Type 2 diabetes mellitus with hyperglycemia; E87.8 Other disorders of electrolyte and fluid balance, not elsewhere classified; D64.9 Anemia, unspecified; Z79.84 Long term (current) use of oral hypoglycemic drugs; Z91.19 Patient's noncompliance with other medical treatment and regimen; Z88.8 Allergy status to other drugs, medicaments and biological substances